=== PATIENT | male | born 1935 | race Caucasian/White ===

== ENCOUNTER 2017-01-06 10:51 | Inpatient (IN) | payer MEDICARE, MEDICAID ==
[~2017-01-06] VITALS: Ht 165.1 cm; Wt 57.3 kg
[~2017-01-06 10:51] MED LIST: /ADVA50050; /ADVA50050 IN; /ATOR40TA; /ESOM40CA OR; /TIOT18INH; /WARF25TA OR; ACIPHEX; ASPI325T28 PO; ATOR40TA75 PO; BABY81CH; CALCIUM CITRATE PO; COLA100C2 OR; DIOV160T5; DIOV160T5 OR; ECOT325T5; FISH1000 OR; FISHCAP; FLAG500T OR; FURO20TA2 PO; ISMO20TA; ISOS20TA PO; KLOR10TA; LASI20TA; LASI20TA OR; LASI40TA; LEVA500T; LOPR100T; LOVAZA; MULT1TAB8 PO; NIAC500T; PAXI20TA29 PO; SENN8.6T7 PO; THERGRAN; VALS1TAB47 PO; VERA120C3; VERA240C PO; VERAPAMIL PO; VITAMIN D PO; ZETI10TA; ZETI10TA30 PO; [UNRECOGNIZED DRUG - OTHER] PO
[2017-01-06] MEDS ORDERED: ASPI1TAB PO (11:01)
[2017-01-06] MEDS ORDERED: ELIQ5TAB PO (11:01)
[2017-01-06] MEDS ORDERED: DIGO0.12 PO (11:01)
[2017-01-06] MEDS ORDERED: NS 1,000 ML IV SCH (12:18)
[2017-01-06] MEDS ORDERED: ACETAMINOPHEN TAB 650MG DOSE (2X325MG) PO ONE (12:30)
[2017-01-06 12:57] LABS: BASO % 0.1 % (0.0-1.0); EOS % 0.2 % (0.0-3.0); LARGE UNSTAINED CELL # 0.2 K/mm3 (0.0-0.4); LARGE UNSTAINED CELL % 1.1 % (0.0-4.0); LYMPH # 1.2 K/mm3 (1.5-4.5); LYMPH % 5.7 % (24.0-44.0); MEAN CORPUSCULAR HEMOGLOBIN 31.7 pg (27.0-33.0); MEAN CORPUSCULAR HGB CONC 34.6 g/dl (32.0-36.5); MEAN CORPUSCULAR VOLUME 91.6 fl (80.0-96.0); MONO # 0.9 K/mm3 (0.0-0.8); MONO % 4.3 % (0.0-5.0); NEUTROPHILS # 19.1 K/mm3 (1.8-7.7); NEUTROPHILS % 88.6 % (36.0-66.0); PLATELET COUNT, AUTOMATED 147 k/mm3 (150-450); RED CELL DISTRIBUTION WIDTH 13.1 % (11.5-14.5); WHITE BLOOD COUNT 21.5 K/mm3 (4.0-10.0)
[2017-01-06 13:27] LABS: ALBUMIN 3.3 GM/DL (3.2-5.2); ALBUMIN/GLOBULIN RATIO 1.1 (1.00-1.93); BILIRUBIN,DIRECT 0.5 MG/DL (0.0-0.2); BILIRUBIN,TOTAL 2.2 MG/DL (0.2-1.0); CALCIUM LEVEL 8.2 MG/DL (8.8-10.2); CREATININE FOR GFR 1.74 MG/DL (0.70-1.30); GLOMERULAR FILTRATION RATE 40.1 (>35); POTASSIUM SERUM 4.2 MEQ/L (3.5-5.1); TOTAL PROTEIN 6.3 GM/DL (6.4-8.2)
[2017-01-06 13:37] LABS: DIGOXIN LEVEL 1.3 NG/ML (0.5-2.0)
[2017-01-06] MEDS ORDERED: LIPI20TA PO (14:27)
--- NOTE | 2017-01-06 14:31 | REP ---
PELVIS: Single AP view. HISTORY: Back pain after a fall. FINDINGS: AP view of the pelvis demonstrates a left hip prosthesis with some heterotopic bone formation superior and lateral. Bony pelvic ring is intact. Sacrum is intact. 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 No fracture is seen. IMPRESSION: No fracture visible. Signed by Lenard Saavedra MD 01/06/2017 02:49 P
--- NOTE | 2017-01-06 14:42 | REP ---
Lumbar spine series: Five views. History: Low back pain. Injury in a fall. Findings: Five views of the lumbar spine show mild levoconvex curve. There is advanced degenerative disc disease at each lumbar level. This is least pronounced at L4-5. Pedicles and posterior elements are intact. No evidence of spondylolysis or spondylolisthesis is seen. There is osteoarthritic facet sclerosis and narrowing bilaterally at L5-S1 and to some degree at L4-5. Sacrum and SI joints are unremarkable. No acute bony abnormality is seen. Impression: Degenerative spondylosis changes. No acute bony abnormality. No fracture or collapse seen. Signed by Lenard Saavedra MD 01/06/2017 02:50 P
--- NOTE | 2017-01-06 14:43 | REP ---
Thoracic spine series: Three views. History: Back pain after a fall. Findings: Thoracic vertebral body heights are preserved. No fracture or collapse is seen. Discogenic spurring is seen throughout the thoracic spine. No paravertebral soft-tissue mass is seen. Median sternotomy wires are noted. Pedicles and posterior elements are intact. Impression: Degenerative disc changes. No fracture seen. Prior sternotomy. Signed by Lenard Saavedra MD 01/06/2017 02:49 P
--- NOTE | 2017-01-06 14:44 | REP ---
CHEST X-RAY, two views: History: Fever. Findings: Patient is status post prior sternotomy. The lungs are symmetrically aerated and clear. EKG electrodes are seen. Pleural angles are sharp. Heart is not enlarged. No significant change from comparison study December 18, 2014. Impression: No active disease. Signed by Lenard Saavedra MD 01/06/2017 02:50 P
[2017-01-06] MEDS ORDERED: CIPROFLOXACIN 400 MG in APPROPRIATE DILUENT 1 EA IV ONE (15:00)
[2017-01-06] MEDS ORDERED: NORCO, ANEXSIA 5/325MG TABLET (HYDROcodone/ACETAMINOPHEN) PO PRN ×2 (15:45)
[2017-01-06] MEDS: NS 1,000 ML IV SCH ×2 (15:45→21:57)
[2017-01-06] MEDS ORDERED: ONDANSETRON 4MG/2ML VIAL (J2405) IV PRN (15:45)
--- NOTE | 2017-01-06 16:39 | HPE ---
DATE OF ADMISSION: 01/06/2017 This is a patient of Dr. Capo Willard. SCHOOL PHOTOGRAPHER: Dr. Lopez. CHIEF COMPLAINT: Fell down. SUMMARY OF HISTORY OF PRESENT ILLNESS: This is an 81-year-old with baseline memory impairment who last night got out of bed, fell. He is unsure why he fell. His heard him, came in. He was awake. There was no obvious loss of consciousness. She could not get him back in bed. Called their son, who helped father into bed. He had an uneventful evening. He had no complaints of new or unusual pain. This morning he seems fine. His has been concerned, though, as he has been suffering from falls. He has been falling around twice a week, and this week he fell three to four times. He has not been totally well for about a year. He was brought to the emergency department today. He was found to be febrile and had abnormal urinalysis (UA). I was called for admission. PAST MEDICAL HISTORY: Notable for: 1. Coronary artery disease, status post coronary artery bypass graft (CABG). 2. Hypertension. 3. Chronic obstructive pulmonary disease (COPD). 4. Hyperlipidemia. 5. Depression. 6. Carotid artery disease. PAST SURGICAL HISTORY: Notable for: 1. CABG. 2. Cataract extraction. 3. Cholecystectomy 4. Left hip surgery. ALLERGIES: Listed as MORPHINE, OXYCODONE, PENICILLIN. 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 Quit smoking over 30 years ago. Does not use any alcohol. He does not have any advance directives. FAMILY HISTORY: Unremarkable due to advanced age. REVIEW OF SYSTEMS: Is not meaningfully obtainable from the patient, but the patient's says that he has been eating and drinking normally. She has not noticed that he has had any weight gain or weight loss. He has never complained of chest pain, shortness of breath. He has had no nausea, vomiting, or diarrhea. He has never had any seizures. Otherwise unremarkable. PHYSICAL EXAMINATION: Temperature 100.8, pulse 60, respiratory rate 20, blood pressure 163/67, 97% on room air. Body mass index is 23.3. He is awake and following commands but not a useful historian. He is somewhat argumentative with me and his . His assures me this is totally normal. Head is normocephalic. Sinuses nontender. Pupils equal, round, reactive, anicteric. Not injected. Nasal septum is midline. Mucous membranes are tacky. Neck is supple. No cervical or supraclavicular adenopathy. Breathing is symmetrical and easy, although he does feel warm on exam. Inspiratory to expiratory (I-to-E) ratio is 1:3. There is no costovertebral angle (CVA) tenderness. There is bilateral sacroiliac (SI) joint tenderness. Abdomen is soft, dough, with mild suprapubic tenderness without rebound or guarding. There is no significant lower extremity edema. He is moving all four extremities. Strength is 4+. White cell count 21.5, hemoglobin 13.1, and platelets of 147. Sodium is 143, potassium 4.2, chloride 107, carbon dioxide 24, BUN 30, creatinine 1.74. Baseline creatinine would appear to be probably around 1.2. Calcium 8.2. Total bilirubin 2.2, direct bilirubin 0.5 AST 28, ALT 17, alkaline phosphatase 69. CK 238, troponin I 0.12. TSH 1.25. UA is notable for 3+ leukocyte esterase, too numerous to count whites, 36 reds, 2+ bacteria. Digoxin level 1.3. Urine and blood culture are pending. Chest x-ray shows no acute disease. Lumbar spine x-ray shows degenerative changes without acute disease. Pelvic x-ray shows no visible fracture. Thoracic spine x-ray shows degenerative changes. No fracture. Previous sternotomy. EKG shows evidence of left ventricular hypertrophy (LVH) with ST-T-wave changes, ventricular ectopy. ASSESSMENT: This is an 81-year-old with falls and likely urinary tract infection, noted to have minimally elevated troponin. PLAN: 1. Patient has acute renal failure and likely urinary tract infection. The possibility of obstruction should be considered. CT scan of the abdomen and pelvis is ordered without contrast, also looking for evidence of pyelonephritis to further assess the possibility for that as well, which would change the length of treatment. Cultures are pending. Ciprofloxacin started, which is reasonable given his history of PENICILLIN allergy. 2. The patient has history of coronary artery disease, status post CABG. He does have elevated troponin minimally in the setting of acute renal failure without any symptoms associated with cardiac dysfunction. Will repeat the troponins. I do not believe there is a cause for telemetry at this point. 3. Patient has history of hypertension. Withhold nephrotoxic drugs and monitor his blood pressure. 4. Patient has hyperlipidemia. 5. Patient has been suffering from falls chronically and appears to have memory impairment. Possibility of dementia occurs to me. We will have physical therapy see him. I believe correcting his acute illness will improve his physical functionality. 6. Patient does have history of carotid stenosis. Will re-image his carotids. 7. Deep vein thrombosis (DVT) prophylaxis is ordered.
[2017-01-06 17:50] VITALS: BP 162/70
[2017-01-06] MEDS ORDERED: HEPARIN SOD (PORCINE) 5000 UNITS/ML VIAL SC SCH (21:00)
[2017-01-06] MEDS: SENOKOT S TAB PO SCH (21:56)
[2017-01-06] MEDS: APIXABAN 5 MG TAB (ELIQUIS) PO SCH (21:56)
[2017-01-06 22:00] VITALS: BP 134/69
[2017-01-07 05:32] LABS: MEAN CORPUSCULAR HEMOGLOBIN 31.7 pg (27.0-33.0); MEAN CORPUSCULAR HGB CONC 34.6 g/dl (32.0-36.5); MEAN CORPUSCULAR VOLUME 91.8 fl (80.0-96.0); RED CELL DISTRIBUTION WIDTH 13.6 % (11.5-14.5); WHITE BLOOD COUNT 19.4 K/mm3 (4.0-10.0)
[2017-01-07 06:00] VITALS: BP 158/69
[2017-01-07 06:11] LABS: CALCIUM LEVEL 7.9 MG/DL (8.8-10.2); CREATININE FOR GFR 1.57 MG/DL (0.70-1.30); GLOMERULAR FILTRATION RATE 45.1 (>35); MAGNESIUM LEVEL 2.1 MG/DL (1.8-2.4); POTASSIUM SERUM 4.3 MEQ/L (3.5-5.1)
--- NOTE | 2017-01-07 07:09 | REP ---
CT study abdomen and pelvis without IV or oral contrast: Renal stone protocol. History: Mid back pain. Acute renal failure. Pyelonephritis. Comparison CT study August 15, 2011. CT findings: Digital preliminary corn chip maker radiograph demonstrates an unremarkable bowel gas pattern. There are median sternotomy wires and a prosthetic left hip is seen. The lung bases are essentially clear. The liver and spleen contain scattered granulomatous calcifications but are otherwise unremarkable. There is some pneumobilia post cholecystectomy. No pancreatic abnormality is observed. Vascular calcification is seen fairly extensively. Small and large bowel loops are normal in the upper abdomen. The kidneys appear morphologically intact. No hydronephrosis is seen. There is a cyst at the lower pole of the left kidney measuring 1.8 cm, which is slightly larger, but not new when compared to the 2012 prior study. No hydronephrosis or renal calculus is seen. No ureteral calculus is observed. There is left colonic diverticulosis without CT evidence of diverticulitis. Urinary bladder and prostate are unremarkable. Prostate is enlarged. A normal appendix is seen posterior to the cecum. No abdominal wall defect is seen. No bony destructive lesion is seen. Impression: Status post cholecystectomy with mild pneumobilia. Extensive vascular calcification. Left colonic diverticulosis. Moderate stool in the rectum and rectosigmoid. No acute abnormality. 1.8 cm cyst left kidney. Signed by Lenard Saavedra MD 01/07/2017 08:46 A
[2017-01-07] MEDS: ATORVASTATIN 20 MG TAB PO SCH (08:24)
[2017-01-07] MEDS: APIXABAN 5 MG TAB (ELIQUIS) PO SCH ×2 (08:24→20:25)
[2017-01-07] MEDS: SENOKOT S TAB PO SCH ×2 (08:24→20:25)
[2017-01-07] MEDS: ASPIRIN 81 MG ENTERIC TAB PO SCH (08:24)
[2017-01-07 14:00] VITALS: BP 136/63
[2017-01-07] MEDS: CIPROFLOXACIN 400 MG in APPROPRIATE DILUENT 1 EA IV SCH (14:18)
[2017-01-07 16:00] VITALS: BP 172/68
[2017-01-07] MEDS: NS 1,000 ML IV SCH (17:23)
[2017-01-07] MEDS: ACETAMINOPHEN TAB 650MG DOSE (2X325MG) PO PRN (17:24)
--- NOTE | 2017-01-07 21:26 | ECGEPIP ---
Stationary ECG Study [facility] - ED Test Date: 2017-01-06 Pat Name: MIMI DEMPSEY Department: Room: - Gender: M Grant Administrator: sb : [id number] Requested By: DASH Wang Order Number: [id number] Reading MD: Jeanna Morrissey Measurements Intervals [place] Rate: 67 P: 206 IN: 298 QRS: -32 QRSD: 118 T: 151 QT: 390 QTc: 413 Interpretive Statements SINUS RHYTHM WITH FIRST DEGREE AV BLOCK WITH OCCASIONAL VENTRICULAR PREMATURE COMPLEXES WITH OCCASIONAL SUPRAVENTRICULAR PREMAT MARKED LEFT AXIS DEVIATION LEFT VENTRICULAR HYPERTROPHY AND ST-T CHANGE VS ISCHEMIA ANTEROSEPTAL ST CHANGES REQUIRE CLINICAL CORRELATION Electronically Signed On 01-07-2017 21:26:50 EDT by Jeanna Morrissey
[2017-01-07 22:00] VITALS: BP 148/67
[2017-01-08] VITALS (8 sets, daily range): BP systolic 144–204; BP diastolic 64–120
[2017-01-08] MEDS: CIPROFLOXACIN 400 MG in APPROPRIATE DILUENT 1 EA IV SCH ×2 (01:23→15:25)
[2017-01-08] MEDS ORDERED: FUROSEMIDE 40 MG/4 ML VIAL (J1940) IV ONE ×2 (03:15→15:45)
[2017-01-08] MEDS: ACETAMINOPHEN TAB 650MG DOSE (2X325MG) PO PRN ×2 (04:38→16:37)
[2017-01-08] MEDS ORDERED: LORazepam 2 MG/ML VIAL (J2060) IV STA (04:45)
[2017-01-08 05:40] LABS: MEAN CORPUSCULAR HEMOGLOBIN 31.8 pg (27.0-33.0); MEAN CORPUSCULAR HGB CONC 34.7 g/dl (32.0-36.5); MEAN CORPUSCULAR VOLUME 91.6 fl (80.0-96.0); RED CELL DISTRIBUTION WIDTH 13.5 % (11.5-14.5); WHITE BLOOD COUNT 13.1 K/mm3 (4.0-10.0)
[2017-01-08 06:17] LABS: CALCIUM LEVEL 7.8 MG/DL (8.8-10.2); CREATININE FOR GFR 1.39 MG/DL (0.70-1.30); MAGNESIUM LEVEL 1.7 MG/DL (1.8-2.4); POTASSIUM SERUM 3.8 MEQ/L (3.5-5.1)
--- NOTE | 2017-01-08 07:37 | REP ---
Duplex carotid sonography: History: Falls. Comparison carotid sonography December 19, 2014. Findings: Antegrade flow is observed in both vertebral arteries. Right carotid: The right common carotid artery is unremarkable. There is mixed plaquing in the bulb and proximal ICA on the right side. Elevated systolic velocities are seen in the ICA on Doppler interrogation. Velocity chart right carotid: CCA PSV 131 cm/s ICA PSV 201 cm/s ICA EDV 27 cm/s ECA PSV 152 cm s Right ICA/CCA ratio 1.5. Impression: 50-79% category narrowing in the right ICA by Doppler velocity criteria. Elevated right ICA Doppler velocity is slightly higher than on the 2014 study. Left carotid: Left common carotid artery is unremarkable. Mild mixed plaquing is seen in the bulb and proximal ICA on the left side. Color flow and spectral Doppler interrogation are unremarkable on the left. Velocity chart left carotid: CCA PSV 139 cm/s ICA PSV 15 cm/s ICA EDV 15 cm/s ECA PSV 155 Left ICA/CCA ratio normal 0.8. Impression: 16-49% category narrowing in the left ICA. Doppler velocities on the left have not changed significantly. Signed by Lenard Saavedra MD 01/08/2017 08:38 A
--- NOTE | 2017-01-08 08:23 | REP ---
Sitting AP portable chest x-ray: Single view. History: Shortness of breath. Comparison chest x-ray January 06, 2017. Findings: Prior sternotomy wires are seen. Heart is at the upper range of normal in size. Pulmonary vascular markings are somewhat increased in the perihilar region. No pleural effusion or focal infiltrate is seen. Impression: Somewhat prominent central pulmonary vessels and interstitial markings. Borderline heart size. Prior sternotomy. Signed by Lenard Saavedra MD 01/08/2017 08:38 A
[2017-01-08] MEDS ORDERED: DIGOXIN 0.125 MG TAB PO SCH (09:00)
[2017-01-08] MEDS: ASPIRIN 81 MG ENTERIC TAB PO SCH (11:31)
[2017-01-08] MEDS: SENOKOT S TAB PO SCH ×2 (11:31→21:11)
[2017-01-08] MEDS: ATORVASTATIN 20 MG TAB PO SCH (11:31)
[2017-01-08] MEDS: APIXABAN 5 MG TAB (ELIQUIS) PO SCH ×2 (11:32→21:11)
[2017-01-08] MEDS: DIGOXIN 0.125 MG TAB PO SCH (11:32)
[2017-01-08] MEDS ORDERED: MAG SULF 1GM/100ML (MAG RUN) 1 GM in APPROPRIATE DILUENT 1 EA IV ONE (16:30)
--- NOTE | 2017-01-08 17:34 | IPN ---
DATE: 01/08/2017 SUBJECTIVE: The patient seen and examined in the room today. After midnight, the patient started having acute respiratory issues. The patient was transferred from medical/surgical to the progressive care unit (PCU). Imaging studies were performed and showed the patient was starting to have signs of fluid overload and one dose of diuretic was given. During the encounter, the patient stated that his breathing is stable. The patient is very sleepy. Still requires increased oxygen support. OBJECTIVE: VITAL SIGNS: Temperature is 98.8, pulse 82, respirations 23, blood pressure 157/67, pulse oximetry is 94% with 2 liters nasal cannula. GENERAL: Fatigued. No sign of acute distress. Alert and oriented times three. HEENT: Normocephalic, atraumatic. Extraocular movements grossly intact. Positive for jugular venous distention (JVD). CARDIOVASCULAR: Positive S1, S2, regular rate. On cardiac telemetry, the patient has frequent PVCs. LUNGS: Positive crackles bilaterally. EXTREMITIES: Very trace edema. No sign of cyanosis. LABORATORY DATA: WBC is 13.1, hemoglobin 11.7, hematocrit 33.7, platelet count is 149, ESR is 64. Sodium is 139, potassium 3.8, chloride is 109, carbon dioxide 21, BUN 26, creatinine is 1.39, GFR is 52, fasting glucose is 137, calcium is 7.8, magnesium 1.7. C-reactive protein is 17.4. BNP is 917. ASSESSMENT AND PLAN: 1. Acute respiratory distress secondary to fluid overload. On admission, the patient is clinically dry and the patient has acute kidney injury. The patient was started on IV fluid and the patient's renal function continues to improve. On admission, the patient had a creatinine of 1.74 and today the patient's creatinine improved to 1.39; however, due to fluid resuscitation, the patient became significantly short of breath and required progressive care unit (PCU) monitoring. I have been checking the input and output. The patient received one dose of IV Lasix in the morning. However, there is still no significant output compared to input. I will order another dose of Lasix in the afternoon. We will continue to monitor the fluid balance. 2. Urinary tract infection. Results show Escherichia (E) coli. The patient has a PENICILLIN allergy. Continue on ciprofloxacin. 3. Acute kidney injury. Initially it was due to prerenal azotemia from dehydration. The patient has been receiving IV fluid and renal function shows continuous improvement. However, due to the fluid overload, IV fluid had to be stopped at this moment. 4. Diastolic congestive heart failure exacerbation. Cardiac echocardiogram was done in November 2014. The patient had a normal ejection fraction and the patient had grade 1 left ventricular diastolic dysfunction. Currently, the patient is being treated for diastolic congestive heart failure exacerbation. 5. Dyslipidemia. 6. Depression. 7. Coronary artery disease. Status post coronary artery bypass graft (CABG). 8. Chronic obstructive pulmonary disease (COPD). 9. Hypertension. 10. Deep vein thrombosis (DVT) prophylaxis. On thromboembolic compression stockings (TEDS), sequential compression device (SCD).
--- NOTE | 2017-01-08 23:35 | IPN ---
DATE: 01/07/2017 SUBJECTIVE: The patient seen and examined in the room today. During the encounter, the patient shows some fatigue but she is able to answer questions appropriately. Alert and oriented times three. Denies any chest pain or palpitations. Denies any difficulty breathing. OBJECTIVE: VITAL SIGNS: Temperature is 99.5, pulse 87, respirations 18, blood pressure 158/69. Pulse oximetry 98% on room air. GENERAL: No sign of acute distress. Fatigue. Alert and oriented times three. HEENT: Normocephalic, atraumatic. Extraocular movements grossly intact. CARDIOVASCULAR: Positive S1, S2, regular rate. LUNGS: Clear to auscultation bilaterally. ABDOMEN: Soft, nontender, nondistended. Bowel sounds present. EXTREMITIES: No significant edema. No cyanosis. LABORATORY DATA: WBC 19.4, hemoglobin 12, hematocrit 34.8, platelet count is 130. Sodium is 143, potassium 4.3, chloride is 111, carbon dioxide 24, BUN 32, creatinine 1.57. GFR is 45.1. Fasting glucose is 116. Calcium is 7.9, magnesium 2.1. Total troponin I is 0.19. Blood cultures pending. Urine cultures pending. ASSESSMENT AND PLAN: 1. Urinary tract infection. UA shows positive nitrate. Too many to count WBC and positive bacteria. Urine culture is still pending. The patient will be on ciprofloxacin. The patient has allergy to PENICILLIN CLASS. 2. Acute kidney injury. The patient had intermittent fluid resuscitation. Renal function is improving. The patient will be oral intake. Encouraged fluid intake. 3. Hypertension. The patient is currently not on any blood pressure medication. Continue to monitor. 4. Coronary artery disease, status post CABG. Currently the patient has trending of troponin. The highest 0.19 this morning. Later around 1:00 pm the repeated troponin shows decreased troponin level. This mild elevation of troponin may be due to current acute illnesses causing demand ischemia. 5. History of chronic obstructive pulmonary disease (COPD). No exacerbation at this moment. 6. History of carotid disease. 7. Depression. 8. Congestive heart failure. No sign of overload at this moment. 9. Deep venous thrombosis (DVT) prophylaxis. The patient is high for risk. The patient will be on thromboembolism deterrents (TEDs), sequential compression devices.
[2017-01-09] VITALS (21 sets, daily range): BP systolic 99–163; BP diastolic 49–73
[2017-01-09] MEDS: CIPROFLOXACIN 400 MG in APPROPRIATE DILUENT 1 EA IV SCH (01:48)
[2017-01-09] MEDS: ACETAMINOPHEN TAB 650MG DOSE (2X325MG) PO PRN ×2 (03:39→21:12)
[2017-01-09] MEDS ORDERED: LORazepam 2 MG/ML VIAL (J2060) IV STA ×2 (04:12→22:05)
[2017-01-09] MEDS ORDERED: LORazepam 2 MG/ML VIAL (J2060) As Ordered ONE (04:14)
[2017-01-09] MEDS ORDERED: ASPIRIN 325 MG TAB PO ONE (04:30)
[2017-01-09 04:37] LABS: ABG BASE EXCESS -8.1 (-2.0-2.0); ABG HCO3 14.1 MEQ/L (22.0-26.0); ABG PARTIAL PRESSURE CO2 21.7 mmHg (35.0-45.0); ABG PARTIAL PRESSURE O2 93.3 mmHg (75.0-100.0); ABG TOTAL CO2 14.8 MEQ/L (23.0-31.0); ABG pH (ARTERIAL) 7.432 UNITS (7.350-7.450)
[2017-01-09] MEDS ORDERED: SODIUM CHLORIDE 0.9% 1000 ML IV ONE ×2 (04:45→05:45)
[2017-01-09] MEDS: MEROPENEM INJ 500 MG in D5W MINI-BAG PLUS 100 ML IV SCH ×3 (05:01→21:13)
[2017-01-09 05:06] LABS: BASO % 0.2 % (0.0-1.0); EOS # 0.1 K/mm3 (0.0-0.50); EOS % 0.8 % (0.0-3.0); LARGE UNSTAINED CELL # 0.2 K/mm3 (0.0-0.4); LARGE UNSTAINED CELL % 1.5 % (0.0-4.0); LYMPH # 1.1 K/mm3 (1.5-4.5); LYMPH % 8.3 % (24.0-44.0); MEAN CORPUSCULAR HEMOGLOBIN 31.9 pg (27.0-33.0); MEAN CORPUSCULAR HGB CONC 34.4 g/dl (32.0-36.5); MEAN CORPUSCULAR VOLUME 92.7 fl (80.0-96.0); MONO # 0.6 K/mm3 (0.0-0.8); MONO % 5.5 % (0.0-5.0); NEUTROPHILS # 9.2 K/mm3 (1.8-7.7); NEUTROPHILS % 83.7 % (36.0-66.0); PLATELET COUNT, AUTOMATED 164 k/mm3 (150-450); RED CELL DISTRIBUTION WIDTH 13.5 % (11.5-14.5)
[2017-01-09 05:10] LABS: CALCIUM LEVEL 7.8 MG/DL (8.8-10.2); CREATININE FOR GFR 1.7 MG/DL (0.70-1.30); GLOMERULAR FILTRATION RATE 41.2 (>35); POTASSIUM SERUM 3.8 MEQ/L (3.5-5.1)
--- NOTE | 2017-01-09 05:10 | PHACANCOPD ---
PHARMACY VANCOMYCIN DOSING Pt Demographics Demographics Patient Age:81 , Weight:63.400 , Gender: male Adjusted Body Weight Date: 01/09/17, Adjusted Body Weight: [63.4] Kg ACTUAL WT Vancomycin Vancomycin indication: SEPSIS Vancomycin Target Ranges: 10-20 mcg/ml Vancomycin Load Y/N: No Load Dose Date Time Vancomycin Load Dose: Date: Time: Vancomycin Dose Date: 01/09/17. Current Vancomycin Dose: [1 GM IV Q24H@06] Intermittent Dosing?: No Labs Labs Laboratory Tests 01/08/17 05:27 Red Blood Count 3.68 L, Mean Corpuscular Volume 91.6, Mean Corpuscular Hemoglobin 31.8, Mean Corpuscular Hemoglobin Concent 34.7, Red Cell Distribution Width 13.5, Calcium Level 7.8 L Micro Microbiology 01/09/17 Blood Culture, Received Pending 01/08/17 Blood Culture, Received Pending 01/06/17 Blood Culture - Preliminary, Resulted No Growth after 48 hours. All Specime... 01/06/17 Blood Culture - Preliminary, Resulted No Growth after 48 hours. All Specime... 01/06/17 Urine Culture - Final, Complete Escherichia Coli Creatinine Clearance Date:01/09/17. Creatinine Clearance: [36.1].CALCULATED Pending Labs VANCO TROUGH DUE 01/11@0500 Assessment and Plan Maintaining Current Dose?: Yes Reason for dose change: No Dose Change Pharmacist Note Pharmacist Note Date: 01/09/17. Pharmacist note:SEPSIS SUSPECTED ;CIPRO DISCONTINUED.TO BEGIN MEROPENEM 500MG IV Q8H AND VANCOMYCIN PER PHARMACY CONSULT.WILL DOSE VANCOMYCIN 1 GM IV Q24H@06,WITH FIRST TROUGH FOR 01/11@0500 PAULA VARELA PHARMACY Jan 09, 2017 05:10
[2017-01-09 05:32] LABS: ERYTHROCYTE SEDIMENTATION RATE 68 mm/hr (0-20)
[2017-01-09 05:38] LABS: YEAST LIKE CELL URINE AUTO SMALL
[2017-01-09] MEDS: VANCOMYCIN HCL 1,000 MG, VIAL MATE ADAPTER 1 EACH in D5W 250 ML IV SCH (05:51)
[2017-01-09] MEDS: APIXABAN 5 MG TAB (ELIQUIS) PO SCH ×2 (08:01→21:13)
[2017-01-09] MEDS: ASPIRIN 81 MG ENTERIC TAB PO SCH (08:01)
[2017-01-09] MEDS: DIGOXIN 0.125 MG TAB PO SCH (08:01)
[2017-01-09] MEDS: SENOKOT S TAB PO SCH ×2 (08:02→21:12)
[2017-01-09] MEDS: ATORVASTATIN 20 MG TAB PO SCH (08:02)
--- NOTE | 2017-01-09 08:04 | REP ---
Portable chest x-ray: Single view. History: Tachypnea. Comparison study: 08 January 2017. Findings: Oxygen delivery tubing and EKG monitoring electrodes are seen. The lungs are well inflated and free of infiltrate. Cardiomegaly is observed in this patient status post prior sternotomy. Pulmonary vasculature is cephalized and somewhat congested. Impression: Cephalization and pulmonary vascular congestion. Cardiomegaly. No pleural effusion or pulmonary edema seen. Mild CHF pattern. Signed by Lenard Saavedra MD 01/09/2017 09:54 A
--- NOTE | 2017-01-09 12:48 | IPNPDOC ---
Subjective Date Seen The patient was seen on 01/09/17. Subjective Chief Complaint/HPI Patient seen and examined at bedside this morning. States that he is feeling better this morning. Denies any acute complaints from overnight. However, according to staff the patient was notably tachycardic, tachypnea, and short of breath requiring a nonrebreather mask overnight. At this time, the patient states he is resting comfortably and he is without any acute complaints. He denies any memory of any of the aforementioned overnight occurrences. Objective Physical Examination General Exam: Positive: Alert, Cooperative, No Acute Distress ENT Exam: Positive: Atraumatic, Mucous membr. moist/pink Neck Exam: Negative: JVD Chest Exam: Positive: Diminished, Negative: Rhonchi, Wheezing Heart Exam: Positive: Rate Normal, Normal S1, Normal S2 Telemetry: Positive: Sinus Abdomen Exam: Positive: Soft, Negative: Tenderness Extremity Exam: Negative: Tenderness, Swelling Assessment /Plan Plan/VTE VTE Prophylaxis Ordered?: Yes Plan Sepsis 2/2 Urinary Tract Infection UA noted from admission Urine Culture notable for E. Coli--susceptibilites noted Blood cultures unrevealing thus far Patient did spike persistent fevers last night (T. Max 103.8) and he was tachycardic as well Abx coverage broadened with Vanco/Meropenem Patient afebrile this morning, and HR back to within normal range Lactic acidosis also noted overnight (4.4)--however has now normalized following IVF hydration WBC downward trending We will cont to monitor the patient's progress Lactic Acidosis 2/2 above, resolved s/p IVF Hydration Acute Kidney Injury superimposed on CKD Stage III Serum Cr 1.70 this AM (Baseline 1.2-1.5) S/P IVF Hydration CT Abd/Pel with no acute findings Hold Nephrotoxins We will cont to monitor serum BMP Hx of [place] in 1999, CAD s/p CABG in 2000, Carotid Artery Disease, ?Atrial Fibrillation EKG with no acute ST Changes Patient did have mild elevation troponins (Peak 0.19)--this is likely 2/2 underlying Sepsis 2D ECHO from 2014 notable for Stage 1 DD--we will repeat an ECHO here to assess for acute changes Cont ASA, Statin Not on BB as his HR seems to run borderline low at baseline Eliquis dose renally adjusted to 2.5mg BID Patient denies any c/o chest pain at this time Stage 1 DD CHF Patient did receive IVF hydration for ARSLAN, and did have some decompensation of Diastolic CHF He was given lasix IV x 2 doses yesterday Appears more volume compensated today, as he is saturating 93% on Room Air 2D ECHO from 2014 as noted above, repeat ECHO ordered Dyslipidemia Cont Statin DVT Prophylaxis Already on AC Prognosis: Guarded Dispo-We will continue to monitor the patient's progress with the aforementioned medical management. PT on board for functional optimization. VS, I&O, 24H, Fishbone Vital Signs/I&O Vital Signs Date Time Temp Pulse Resp B/P (MAP) Pulse Ox O2 Delivery O2 Flow Rate FiO2 01/09/17 12:00 Room Air 01/09/17 11:00 97.4 56 109/49 (69) 93 01/09/17 08:00 4.0 01/09/17 04:30 35 I&O- Last 24 Hours up to 6 AM 01/09/17 06:00 Intake Total 2270 ml Output Total 2190 ml Balance 80 ml Laboratory Data 24H LABS Laboratory Tests 2 01/09/17 04:30: Blood Gas Bicarbonate Standard 18.0L, Arterial Blood pH 7.432, Arterial Blood Partial Pressure CO2 21.7L, Arterial Blood Partial Pressure O2 93.3, Arterial Blood Total CO2 14.8L, Arterial Blood HCO3 14.1L, Arterial Blood Base Excess - 8.1L, Arterial Blood Oxygen Saturation 97.2 01/09/17 04:39: White Blood Count 11.0H, Red Blood Count 3.82L, Hemoglobin 12.2L, Hematocrit 35.4L, Mean Corpuscular Volume 92.7, Mean Corpuscular Hemoglobin 31.9, Mean Corpuscular Hemoglobin Concent 34.4, Red Cell Distribution Width 13.5, Platelet Count 164, Neutrophils (%) (Auto) 83.7H, Lymphocytes (%) (Auto) 8.3L, Monocytes (%) (Auto) 5.5H, Eosinophils (%) (Auto) 0.8, Basophils (%) (Auto) 0.2, Neutrophils # (Auto) 9.2H, Lymphocytes # (Auto) 1.1L, Monocytes # (Auto) 0.6, Eosinophils # (Auto) 0.1, Basophils # (Auto) 0.0, Large Unclassified Cells % 1.5 , Large Unclassified Cells # 0.2, Erythrocyte Sedimentation Rate 68H, Anion Gap 14, Glomerular Filtration Rate 41.2, Lactic Acid Level 4.4*H, Blood Urea Nitrogen 30H, Creatinine 1.70H, Sodium Level 139, Potassium Level 3.8, Chloride Level 106, Carbon Dioxide Level 19L, Calcium Level 7.8L, Magnesium Level 2.0, C- Reactive Protein, Quantitative 17.60H 01/09/17 05:17: Urine Appearance CLOUDYH, Urine Color REDH, Urine pH 5.0, Urine Specific [place] 1.019, Urine Protein 2+H, Urine Glucose (UA) NEGATIVE, Urine Ketones NEGATIVE, Urine Urobilinogen 0.2, Urine Bilirubin NEGATIVE, Urine Leukocyte Esterase 1+H, Urine Blood 3+H, Urine Nitrite NEGATIVE, Urine WBC (Auto) 87H, Urine RBC (Auto) TNTCH, Urine Hyaline Casts (Auto) 14, Urine Bacteria (Auto) 1+H , Urine Squamous Epithelial Cells 2, Urine Mucus (Auto) SMALL, Urine Yeast-Like Cells (Auto) SMALLH, Urine Sperm (Auto) 01/09/17 09:20: Lactic Acid Followup at 4 Hours 1.5 CBC/BMP Laboratory Tests 01/09/17 04:39 Red Blood Count 3.82 L, Mean Corpuscular Volume 92.7, Mean Corpuscular Hemoglobin 31.9, Mean Corpuscular Hemoglobin Concent 34.4, Red Cell Distribution Width 13.5, Neutrophils (%) (Auto) 83.7 H, Lymphocytes (%) (Auto) 8.3 L, Monocytes (%) (Auto) 5.5 H, Eosinophils (%) (Auto) 0.8, Basophils (%) ( Auto) 0.2, Neutrophils # (Auto) 9.2 H, Lymphocytes # (Auto) 1.1 L, Monocytes # ( Auto) 0.6, Eosinophils # (Auto) 0.1, Basophils # (Auto) 0.0, Calcium Level 7.8 L Microbiology Microbiology 01/09/17 Blood Culture, Received Pending 01/09/17 Blood Culture, Received Pending 01/08/17 Blood Culture - Preliminary, Resulted No growth after 24 hours . All specim... 01/06/17 Blood Culture - Preliminary, Resulted No Growth after 48 hours. All Specime... 01/06/17 Blood Culture - Preliminary, Resulted No Growth after 48 hours. All Specime... 01/09/17 Urine Culture, Received Pending 01/06/17 Urine Culture - Final, Complete Escherichia Coli AXEL GLEZ MD Jan 09, 2017 12:48
[2017-01-09] MEDS ORDERED: QUEtiapine FUMARATE 25 MG TAB PO ONE (21:00)
[2017-01-10] VITALS (18 sets, daily range): BP systolic 114–168; BP diastolic 56–82
[2017-01-10] MEDS: ACETAMINOPHEN TAB 650MG DOSE (2X325MG) PO PRN ×3 (01:15→18:44)
[2017-01-10] MEDS ORDERED: LORazepam 2 MG/ML VIAL (J2060) IV STA (02:00)
[2017-01-10] MEDS ORDERED: ASPIRIN 300 MG SUPP PR ONE (03:00)
[2017-01-10 05:14] LABS: BASO % 0.1 % (0.0-1.0); EOS % 0.4 % (0.0-3.0); LARGE UNSTAINED CELL # 0.2 K/mm3 (0.0-0.4); LARGE UNSTAINED CELL % 1.5 % (0.0-4.0); LYMPH # 0.5 K/mm3 (1.5-4.5); LYMPH % 3.6 % (24.0-44.0); MEAN CORPUSCULAR HEMOGLOBIN 31.6 pg (27.0-33.0); MEAN CORPUSCULAR HGB CONC 34.7 g/dl (32.0-36.5); MEAN CORPUSCULAR VOLUME 90.9 fl (80.0-96.0); MONO # 0.9 K/mm3 (0.0-0.8); MONO % 7.5 % (0.0-5.0); NEUTROPHILS # 10.9 K/mm3 (1.8-7.7); NEUTROPHILS % 86.9 % (36.0-66.0); PLATELET COUNT, AUTOMATED 165 k/mm3 (150-450); RED CELL DISTRIBUTION WIDTH 13.4 % (11.5-14.5); WHITE BLOOD COUNT 12.5 K/mm3 (4.0-10.0)
[2017-01-10] MEDS: MEROPENEM INJ 500 MG in D5W MINI-BAG PLUS 100 ML IV SCH ×3 (05:16→21:49)
[2017-01-10 05:23] LABS: CALCIUM LEVEL 7.4 MG/DL (8.8-10.2); CREATININE FOR GFR 1.3 MG/DL (0.70-1.30); GLOMERULAR FILTRATION RATE 56.1 (>35); POTASSIUM SERUM 4.1 MEQ/L (3.5-5.1)
[2017-01-10] MEDS: VANCOMYCIN HCL 1,000 MG, VIAL MATE ADAPTER 1 EACH in D5W 250 ML IV SCH (05:47)
[2017-01-10] MEDS ORDERED: CALCIUM GLUCONATE 1,000 MG in D5W MINI-BAG PLUS 100 ML IV ONE (07:30)
[2017-01-10] MEDS ORDERED: ASPIRIN 300 MG SUPP PR SCH (09:00)
[2017-01-10] MEDS: DIGOXIN 0.125 MG TAB PO SCH (09:36)
[2017-01-10] MEDS: ATORVASTATIN 20 MG TAB PO SCH (09:36)
[2017-01-10] MEDS: ASPIRIN 81 MG ENTERIC TAB PO SCH (09:36)
[2017-01-10] MEDS: APIXABAN 5 MG TAB (ELIQUIS) PO SCH ×2 (09:36→21:49)
[2017-01-10 10:45] LABS: CALCIUM LEVEL 7.8 MG/DL (8.8-10.2); CREATININE FOR GFR 1.45 MG/DL (0.70-1.30); GLOMERULAR FILTRATION RATE 49.5 (>35); MAGNESIUM LEVEL 2.2 MG/DL (1.8-2.4); POTASSIUM SERUM 4.1 MEQ/L (3.5-5.1)
[2017-01-10] MEDS: SENOKOT S TAB PO SCH ×2 (10:56→21:49)
[2017-01-10 11:22] LABS: ABG BASE EXCESS -6.8 (-2.0-2.0); ABG HCO3 15.9 MEQ/L (22.0-26.0); ABG PARTIAL PRESSURE CO2 24.7 mmHg (35.0-45.0); ABG PARTIAL PRESSURE O2 65.6 mmHg (75.0-100.0); ABG STANDARD HCO3 18.9 MEQ/L (22.0-26.0); ABG TOTAL CO2 16.6 MEQ/L (23.0-31.0); ABG pH (ARTERIAL) 7.426 UNITS (7.350-7.450)
[2017-01-10] MEDS ORDERED: FUROSEMIDE 40 MG/4 ML VIAL (J1940) IV ONE (12:00)
--- NOTE | 2017-01-10 13:07 | IPNPDOC ---
Subjective Date Seen The patient was seen on 01/10/17. Subjective Chief Complaint/HPI Patient seen and examined at the bedside this morning. According to staff the patient was noted to be restless and agitated overnight, and he subsequently received intravenous Ativan. In addition, the patient was once again noted to be febrile. Upon my evaluation this morning, the patient is drowsy but is answering questions appropriately. Denies any acute complaints of shortness of breath, chest pain, or any pain in general. Objective Physical Examination General Exam: Positive: Alert, Cooperative, No Acute Distress ENT Exam: Positive: Atraumatic, Mucous membr. moist/pink Neck Exam: Positive: JVD Chest Exam: Positive: Rales (faint bibasilar rales noted bilaterally on auscultation), Diminished, Negative: Rhonchi, Wheezing Heart Exam: Positive: Rate Normal, Normal S1, Normal S2 Telemetry: Positive: Sinus, PVCs Abdomen Exam: Positive: Soft, Negative: Tenderness Extremity Exam: Negative: Tenderness, Swelling Assessment /Plan Plan/VTE VTE Prophylaxis Ordered?: Yes Plan Sepsis 2/2 Urinary Tract Infection UA noted from admission Urine Culture notable for E. Coli--susceptibilites noted Blood cultures unrevealing thus far Patient did spike persistent fevers again last night Empiric Abx coverage with Vanco/Meropenem WBC, CRP levels downward trending We will cont to monitor the patient's progress Stage 1 DD CHF, decompensated Patient did have some increased SOB and bibasilar rales noted on auscultation this AM IV Lasix 40mg x 1 was given, and the patient subsequently diuresed 200+ cc's of urine and his respiratory status improved We will cont to monitor the patient's volume/respiratory status and titrate accordingly. 2D ECHO from 2014 as noted above, repeat ECHO ordered Lactic Acidosis 2/2 above, resolved s/p IVF Hydration Acute Kidney Injury superimposed on CKD Stage III Serum Cr 1.30 this AM (Baseline 1.2-1.5) S/P IVF Hydration CT Abd/Pel with no acute findings Hold Nephrotoxins We will cont to monitor serum BMP Hx of CT in 1999, CAD s/p CABG in 2000, Carotid Artery Disease, ?Atrial Fibrillation EKG with no acute ST Changes Patient did have mild elevation troponins (Peak 0.19)--this is likely 2/2 underlying Sepsis 2D ECHO from 2014 notable for Stage 1 DD--Repeat ECHO pending Cont ASA, Statin Not on BB as his HR seems to run borderline low at baseline Eliquis dose renally adjusted to 2.5mg BID Patient denies any c/o chest pain at this time Dyslipidemia Cont Statin DVT Prophylaxis Already on AC Prognosis: Guarded--I did discuss the patient's Code Status with Jessica Parish this AM, she stated that she will be in later this afternoon to further discuss. Dispo-We will continue to monitor the patient's progress with the aforementioned medical management. PT on board for functional optimization. VS, I&O, 24H, Fishbone Vital Signs/I&O Vital Signs Date Time Temp Pulse Resp B/P (MAP) Pulse Ox O2 Delivery O2 Flow Rate FiO2 01/10/17 11:00 102.2 102 158/78 (104) 94 Nasal Cannula 5.0 01/10/17 04:00 17 I&O- Last 24 Hours up to 6 AM 01/10/17 05:59 Intake Total 3160 ml Output Total 645 ml Balance 2515 ml Laboratory Data 24H LABS Laboratory Tests 2 01/10/17 04:53: White Blood Count 12.5H, Red Blood Count 3.45L, Hemoglobin 10.9L, Hematocrit 31.4L, Mean Corpuscular Volume 90.9, Mean Corpuscular Hemoglobin 31.6, Mean Corpuscular Hemoglobin Concent 34.7, Red Cell Distribution Width 13.4, Platelet Count 165, Neutrophils (%) (Auto) 86.9H, Lymphocytes (%) (Auto) 3.6L, Monocytes (%) (Auto) 7.5H, Eosinophils (%) (Auto) 0.4, Basophils (%) (Auto) 0.1, Neutrophils # (Auto) 10.9H, Lymphocytes # (Auto) 0.5L, Monocytes # (Auto) 0.9H, Eosinophils # (Auto) 0.0, Basophils # (Auto) 0.0, Large Unclassified Cells % 1.5 , Large Unclassified Cells # 0.2, Anion Gap 10, Glomerular Filtration Rate 56.1 , Blood Urea Nitrogen 33H, Creatinine 1.30, Sodium Level 140, Potassium Level 4.1, Chloride Level 109H, Carbon Dioxide Level 21, Calcium Level 7.4L, C- Reactive Protein, Quantitative 14.80H 01/10/17 10:12: Anion Gap 8, Glomerular Filtration Rate 49.5, Blood Urea Nitrogen 33H, Creatinine 1.45H, Sodium Level 138, Potassium Level 4.1, Chloride Level 107, Carbon Dioxide Level 23, Calcium Level 7.8L, Magnesium Level 2.2 01/10/17 11:15: Blood Gas Bicarbonate Standard 18.9L, Arterial Blood pH 7.426, Arterial Blood Partial Pressure CO2 24.7L, Arterial Blood Partial Pressure O2 65.6L, Arterial Blood Total CO2 16.6L, Arterial Blood HCO3 15.9L, Arterial Blood Base Excess - 6.8L, Arterial Blood Oxygen Saturation 93.6L, Arterial Blood Gas Puncture Site RT RADIAL 01/10/17 12:10: CBC/BMP Laboratory Tests 01/10/17 04:53 Red Blood Count 3.45 L, Mean Corpuscular Volume 90.9, Mean Corpuscular Hemoglobin 31.6, Mean Corpuscular Hemoglobin Concent 34.7, Red Cell Distribution Width 13.4, Neutrophils (%) (Auto) 86.9 H, Lymphocytes (%) (Auto) 3.6 L, Monocytes (%) (Auto) 7.5 H, Eosinophils (%) (Auto) 0.4, Basophils (%) ( Auto) 0.1, Neutrophils # (Auto) 10.9 H, Lymphocytes # (Auto) 0.5 L, Monocytes # (Auto) 0.9 H, Eosinophils # (Auto) 0.0, Basophils # (Auto) 0.0, Calcium Level 7.4 L 01/10/17 10:12 Calcium Level 7.8 L Microbiology Microbiology 01/09/17 Blood Culture - Preliminary, Resulted No growth after 24 hours . All specim... 01/09/17 Blood Culture - Preliminary, Resulted No growth after 24 hours . All specim... 01/08/17 Blood Culture - Preliminary, Resulted No Growth after 48 hours. All Specime... 01/06/17 Blood Culture - Preliminary, Resulted No Growth after 72 hours. All specime... 01/06/17 Blood Culture - Preliminary, Resulted No Growth after 72 hours. All specime... 01/09/17 Urine Culture, Received Pending 01/06/17 Urine Culture - Final, Complete Escherichia Coli AXEL GLEZ MD Jan 10, 2017 13:07
--- NOTE | 2017-01-10 15:03 | ECGEPIP ---
Stationary ECG Study [facility] Test Date: 2017-01-10 Pat Name: MIMI DEMPSEY Department: Room: [place] [address] Gender: M [employer]: : 1935 Requested By: AXEL GLEZ Order Number: [id number] Reading MD: Hue Kinsey Measurements Intervals [place] Rate: 78 P: DE: 0 QRS: -25 QRSD: 110 T: 119 QT: 405 QTc: 462 Interpretive Statements SINUS RHYTHM WITH BIG 1ST DEGREE BLOCK, PAC'S, PVC BORDERLINE LEFT AXIS DEVIATION, ILBBB POSSIBLE SEPTAL V2 T ABN, NEW ST DEVIATION AND MODERATE T-WAVE ABNORMALITY, CONSIDER LATERAL ISCHEMIA COMPARED WITH 01/06/17 Electronically Signed On 01-10-2017 15:02:53 EDT by Hue Kinsey
[2017-01-11] VITALS: BP 147/70
[2017-01-11] MEDS: ACETAMINOPHEN TAB 650MG DOSE (2X325MG) PO PRN ×4 (01:52→21:30)
[2017-01-11 04:00] VITALS: BP 150/63
[2017-01-11 05:22] LABS: BASO % 0.3 % (0.0-1.0); EOS # 0.1 K/mm3 (0.0-0.50); EOS % 0.9 % (0.0-3.0); LARGE UNSTAINED CELL # 0.2 K/mm3 (0.0-0.4); LARGE UNSTAINED CELL % 1.8 % (0.0-4.0); LYMPH # 0.4 K/mm3 (1.5-4.5); LYMPH % 3.8 % (24.0-44.0); MEAN CORPUSCULAR HEMOGLOBIN 31.1 pg (27.0-33.0); MEAN CORPUSCULAR HGB CONC 34.3 g/dl (32.0-36.5); MEAN CORPUSCULAR VOLUME 90.7 fl (80.0-96.0); MONO # 0.8 K/mm3 (0.0-0.8); MONO % 7.8 % (0.0-5.0); NEUTROPHILS # 8.7 K/mm3 (1.8-7.7); NEUTROPHILS % 85.4 % (36.0-66.0); PLATELET COUNT, AUTOMATED 202 k/mm3 (150-450); RED CELL DISTRIBUTION WIDTH 13.5 % (11.5-14.5); WHITE BLOOD COUNT 10.2 K/mm3 (4.0-10.0)
[2017-01-11] MEDS: MEROPENEM INJ 500 MG in D5W MINI-BAG PLUS 100 ML IV SCH ×3 (05:30→20:01)
[2017-01-11 05:42] LABS: CREATININE FOR GFR 1.27 MG/DL (0.70-1.30); GLOMERULAR FILTRATION RATE 57.7 (>35); POTASSIUM SERUM 3.8 MEQ/L (3.5-5.1)
--- NOTE | 2017-01-11 05:50 | REPUSA ---
CLINICAL HISTORY: Acute renal failure. COMMENTS: The cardiac silhouette is enlarged. There is evidence for pulmonary venous congestion compatible with CHF. There is no definite radiographic evidence for a lung mass or consolidation. Bony structures appear normal. Unremarkable median sternotomy wires. IMPRESSION: 1. Enlarged cardiac silhouette. 2. Pulmonary venous congestion compatible with CHF. Thank you for your kind referral of this patient.
[2017-01-11 05:58] LABS: ERYTHROCYTE SEDIMENTATION RATE 107 mm/hr (0-20)
--- NOTE | 2017-01-11 06:07 | PHACANCOPD ---
PHARMACY VANCOMYCIN DOSING Pt Demographics Demographics Patient Age:81 , Weight:67.100 , Gender: male Adjusted Body Weight Date: 01/09/17, Adjusted Body Weight: [63.4] Kg ACTUAL WT Vancomycin Vancomycin indication: SEPSIS Vancomycin Target Ranges: 10-20 mcg/ml Vancomycin Load Y/N: No Load Dose Date Time Vancomycin Load Dose: Date: Time: Vancomycin Dose Date: 01/09/17. Current Vancomycin Dose: [1 GM IV Q24H@06] Intermittent Dosing?: No Labs Micro Microbiology 01/09/17 Blood Culture - Preliminary, Resulted No Growth after 48 hours. All Specime... 01/09/17 Blood Culture - Preliminary, Resulted No Growth after 48 hours. All Specime... 01/08/17 Blood Culture - Preliminary, Resulted No Growth after 72 hours. All specime... 01/06/17 Blood Culture - Preliminary, Resulted No Growth after 72 hours. All specime... 01/06/17 Blood Culture - Preliminary, Resulted No Growth after 72 hours. All specime... 01/09/17 Urine Culture, Received Pending 01/06/17 Urine Culture - Final, Complete Escherichia Coli Creatinine Clearance Date:01/09/17. Creatinine Clearance: [36.1].CALCULATED Pending Labs VANCO TROUGH DUE 01/11@0500 Assessment and Plan Maintaining Current Dose?: Yes Reason for dose change: No Dose Change Pharmacist Note Pharmacist Note Date: 01/11/17. Pharmacist note:Vancomycin trough drawm this morning reported as 14.2: SCR:1.27 : will maintain current Vancomycin regimen of 1 Gram iv [id number] : will continue to monitor Date: 01/09/17. Pharmacist note:SEPSIS SUSPECTED ;CIPRO DISCONTINUED.TO BEGIN MEROPENEM 500MG IV Q8H AND VANCOMYCIN PER PHARMACY CONSULT.WILL DOSE VANCOMYCIN 1 GM IV Q24H@06,WITH FIRST TROUGH FOR 01/11@0500 PAULA VARELA PHARMACY Jan 11, 2017 06:07
--- NOTE | 2017-01-11 06:13 | ECHO ---
DATE OF PROCEDURE: 01/10/2017 REFERRING PHYSICIAN: Dr. Colin Freeman. INDICATION: Heart failure, unspecified. HEIGHT: 165 cm. WEIGHT: 62 kg. 2D MEASUREMENTS: Left atrium: 4.3 cm Aortic root: 3.1 cm Ventricular septum: 1.11 cm Posterior wall: 1.17 cm Left ventricle diastole: 5.0 cm LVOT: 2.5 cm Inferior vena cava: 2.2 cm DOPPLER MEASUREMENTS: Mild aortic regurgitation. Aortic valve velocity: 139 cm/s LVOT velocity: 69.2 cm/s LVOT VTI: 13.6 cm Moderate mitral regurgitation. Mitral E velocity: 64.7 cm/s Mitral A velocity: 76.0 cm/s DOPPLER MEASUREMENTS: Mild tricuspid regurgitation. Estimated right ventricle systolic pressure at least 68 mmHg assuming a right atrial pressure of at least 20 mmHg. Pulmonary artery systolic pressure 49 mmHg by pulmonary acceleration time method. MITRAL ANNULAR TISSUE DOPPLER: E-prime septal: 4.0 cm/s E-prime lateral: 6.2 cm/s DESCRIPTION: 1. The left ventricle apex was akinetic and the inferior basal segment was akinetic. The remaining LV segments appear to be globally hypokinetic. Left ventricle normal in size and in diastole. Severe reduction of overall LV systolic function. LVEF 25% by visual estimate. 2. Grade 1 LV diastolic dysfunction (impaired relaxation filling pattern). 3. Mild mitral annular calcification. Moderate mitral regurgitation. 4. Moderate left atrial dilatation. 5. Suggestive of severe elevation of estimated right ventricle systolic pressure (at least 69 mmHg). 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 Suggestive of elevated central venous pressure of at least 20 mmHg. 6. Mild aortic valve sclerosis. Mild aortic regurgitation. 7. No pericardial effusion.
[2017-01-11] MEDS: VANCOMYCIN HCL 1,000 MG, VIAL MATE ADAPTER 1 EACH in D5W 250 ML IV SCH (06:30)
[2017-01-11 07:18] LABS: PHOSPHORUS LEVEL 2.3 MG/DL (2.5-4.9)
[2017-01-11 08:00] VITALS: BP 128/73
[2017-01-11] MEDS: ATORVASTATIN 20 MG TAB PO SCH (08:40)
[2017-01-11] MEDS: APIXABAN 5 MG TAB (ELIQUIS) PO SCH ×2 (08:40→20:01)
[2017-01-11] MEDS: ASPIRIN 81 MG ENTERIC TAB PO SCH (08:40)
[2017-01-11] MEDS: SENOKOT S TAB PO SCH ×2 (08:40→20:01)
[2017-01-11] MEDS: DIGOXIN 0.125 MG TAB PO SCH (08:40)
[2017-01-11] MEDS ORDERED: FUROSEMIDE 40 MG/4 ML VIAL (J1940) IV ONE ×2 (10:00→21:00)
[2017-01-11] MEDS: K-PHOS NEUTRAL 250MG TABLET (SOD.PHOSPHATE/POT.PHOSPHATE) PO SCH ×3 (10:24→20:00)
--- NOTE | 2017-01-11 11:29 | IPNPDOC ---
Subjective Date Seen The patient was seen on 01/11/17. Subjective Chief Complaint/HPI Patient seen and examined at the bedside. He is much more alert and oriented this morning, but still remains confused as to why he was brought to the hospital. He is oriented to person, place, and time. He does not offer any acute complaints at this time. Objective Physical Examination General Exam: Positive: Alert, Cooperative, No Acute Distress ENT Exam: Positive: Atraumatic, Mucous membr. moist/pink Neck Exam: Positive: JVD Chest Exam: Positive: Rales (faint bibasilar rales noted bilaterally on auscultation), Diminished, Negative: Rhonchi, Wheezing Heart Exam: Positive: Rate Normal, Normal S1, Normal S2 Telemetry: Positive: Sinus, PVCs Abdomen Exam: Positive: Soft, Negative: Tenderness Extremity Exam: Negative: Tenderness, Swelling Assessment /Plan Plan/VTE VTE Prophylaxis Ordered?: Yes Plan Sepsis 2/2 Urinary Tract Infection UA noted from admission Urine Culture notable for E. 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 2D ECHO from 2014 notable for Stage 1 DD with preserved EF. However, repeat ECHO here notable for severe overall reduction in systolic function with EF of 25%, as well as Stage 1 DD The patient follows with Dr. Lopez of Cardiology--I did discuss the case with his covering partner, Dr. Patel who has suggested that the patient does not need a cardiac catheterization at this time (given current infection, and patient's overall condition). We will continue to diurese the patient with Lasix as renally tolerated, and add Entresto once the patient is volume optimized and his renal function is stable. As for ICD placement, the patient would benefit from that in the future according to Dr. Patel once he is on medically optimized HF therapy, and can follow up in the office for this. Lactic Acidosis 2/2 above, resolved s/p IVF Hydration Acute Kidney Injury superimposed on CKD Stage III Serum Cr 1.30 this AM (Baseline 1.2-1.5) S/P IVF Hydration CT Abd/Pel with no acute findings Hold Nephrotoxins We will cont to monitor serum BMP Hx of [place] in 1999, CAD s/p CABG in 2000, Carotid Artery Disease, ?Atrial Fibrillation EKG with no acute ST Changes Patient did have mild elevation troponins (Peak 0.19)--this is likely 2/2 underlying Sepsis 2D ECHO from 2014 notable for Stage 1 DD--Repeat ECHO noted above Cont ASA, Statin Not on BB as his HR seems to run borderline low at baseline Eliquis dose renally adjusted to 2.5mg BID Will add Entresto when volume optimized with stable renal function Case discussed with Cardio as noted above Dyslipidemia Cont Statin DVT Prophylaxis Already on AC Prognosis: Guarded--I did discuss the patient's Code Status and new findings of worsening Heart Failure with the patient's Jessica Parish and Son Gunnar this AM. They will be coming in later today further discuss. Dispo-We will continue to monitor the patient's progress with the aforementioned medical management. PT on board for functional optimization. VS, I&O, 24H, Fishbone Vital Signs/I&O Vital Signs Date Time Temp Pulse Resp B/P (MAP) Pulse Ox O2 Delivery O2 Flow Rate FiO2 01/11/17 08:40 71 01/11/17 08:00 98.4 01/11/17 08:00 128/73 (91) 99 Nasal Cannula 2.0 01/11/17 04:00 20 I&O- Last 24 Hours up to 6 AM 01/11/17 06:00 Intake Total 650 ml Output Total 1185 ml Balance -535 ml Laboratory Data 24H LABS Laboratory Tests 2 01/10/17 11:15: Blood Gas Bicarbonate Standard 18.9L, Arterial Blood pH 7.426, Arterial Blood Partial Pressure CO2 24.7L, Arterial Blood Partial Pressure O2 65.6L, Arterial Blood Total CO2 16.6L, Arterial Blood HCO3 15.9L, Arterial Blood Base Excess - 6.8L, Arterial Blood Oxygen Saturation 93.6L, Arterial Blood Gas Puncture Site RT RADIAL 01/10/17 12:10: Digoxin Level 1.2 01/11/17 04:50: White Blood Count 10.2H, Red Blood Count 3.58L, Hemoglobin 11.1L, Hematocrit 32.5L, Mean Corpuscular Volume 90.7, Mean Corpuscular Hemoglobin 31.1, Mean Corpuscular Hemoglobin Concent 34.3, Red Cell Distribution Width 13.5, Platelet Count 202, Neutrophils (%) (Auto) 85.4H, Lymphocytes (%) (Auto) 3.8L, Monocytes (%) (Auto) 7.8H, Eosinophils (%) (Auto) 0.9, Basophils (%) (Auto) 0.3, Neutrophils # (Auto) 8.7H, Lymphocytes # (Auto) 0.4L, Monocytes # (Auto) 0.8, Eosinophils # (Auto) 0.1, Basophils # (Auto) 0.0, Large Unclassified Cells % 1.8 , Large Unclassified Cells # 0.2, Erythrocyte Sedimentation Rate 107H, Anion Gap 11, Glomerular Filtration Rate 57.7, Blood Urea Nitrogen 32H, Creatinine 1.27, Sodium Level 142, Potassium Level 3.8, Chloride Level 109H, Carbon Dioxide Level 22, Calcium Level 8.0L, Phosphorus Level 2.3L, C-Reactive Protein , Quantitative 18.80H, Vancomycin Level Trough 14.2 CBC/BMP Laboratory Tests 01/11/17 04:50 Red Blood Count 3.58 L, Mean Corpuscular Volume 90.7, Mean Corpuscular Hemoglobin 31.1, Mean Corpuscular Hemoglobin Concent 34.3, Red Cell Distribution Width 13.5, Neutrophils (%) (Auto) 85.4 H, Lymphocytes (%) (Auto) 3.8 L, Monocytes (%) (Auto) 7.8 H, Eosinophils (%) (Auto) 0.9, Basophils (%) ( Auto) 0.3, Neutrophils # (Auto) 8.7 H, Lymphocytes # (Auto) 0.4 L, Monocytes # ( Auto) 0.8, Eosinophils # (Auto) 0.1, Basophils # (Auto) 0.0, Calcium Level 8.0 L Microbiology Microbiology 01/09/17 Blood Culture - Preliminary, Resulted No Growth after 48 hours. All Specime... 8/22/17 Blood Culture - Preliminary, Resulted No Growth after 48 hours. All Specime... 01/08/17 Blood Culture - Preliminary, Resulted No Growth after 72 hours. All specime... 01/06/17 Blood Culture - Preliminary, Resulted No Growth after 72 hours. All specime... 01/06/17 Blood Culture - Preliminary, Resulted No Growth after 72 hours. All specime... 01/09/17 Urine Culture - Final, Complete 01/06/17 Urine Culture - Final, Complete Escherichia Coli AXEL GLEZ MD Jan 11, 2017 11:29
[2017-01-11 12:00] VITALS: BP 134/74
[2017-01-11 16:00] VITALS: BP 127/58
[2017-01-11 20:00] VITALS: BP 153/72
[2017-01-12 00:10] VITALS: BP 160/67
[2017-01-12 04:00] VITALS: BP 161/71
[2017-01-12] MEDS: MEROPENEM INJ 500 MG in D5W MINI-BAG PLUS 100 ML IV SCH ×3 (04:04→20:05)
[2017-01-12 05:27] LABS: BASO % 0.3 % (0.0-1.0); EOS # 0.2 K/mm3 (0.0-0.50); EOS % 1.6 % (0.0-3.0); LARGE UNSTAINED CELL # 0.3 K/mm3 (0.0-0.4); LARGE UNSTAINED CELL % 2.9 % (0.0-4.0); LYMPH # 0.6 K/mm3 (1.5-4.5); LYMPH % 6.9 % (24.0-44.0); MEAN CORPUSCULAR HGB CONC 34.3 g/dl (32.0-36.5); MEAN CORPUSCULAR VOLUME 90.3 fl (80.0-96.0); MONO # 0.7 K/mm3 (0.0-0.8); MONO % 7.4 % (0.0-5.0); NEUTROPHILS # 7.3 K/mm3 (1.8-7.7); NEUTROPHILS % 80.9 % (36.0-66.0); PLATELET COUNT, AUTOMATED 248 k/mm3 (150-450); RED CELL DISTRIBUTION WIDTH 13.4 % (11.5-14.5)
[2017-01-12 05:37] LABS: CALCIUM LEVEL 7.4 MG/DL (8.8-10.2); CREATININE FOR GFR 1.35 MG/DL (0.70-1.30); GLOMERULAR FILTRATION RATE 53.7 (>35); PHOSPHORUS LEVEL 3.7 MG/DL (2.5-4.9); POTASSIUM SERUM 3.5 MEQ/L (3.5-5.1)
[2017-01-12] MEDS: VANCOMYCIN HCL 1,000 MG, VIAL MATE ADAPTER 1 EACH in D5W 250 ML IV SCH (06:00)
[2017-01-12 08:00] VITALS: BP 184/75
[2017-01-12] MEDS ORDERED: POTASSIUM CHLORIDE 10 MEQ SR TABLET PO ONE (08:00)
[2017-01-12] MEDS: APIXABAN 5 MG TAB (ELIQUIS) PO SCH ×2 (08:31→20:05)
[2017-01-12] MEDS: SENOKOT S TAB PO SCH ×2 (08:32→20:05)
[2017-01-12] MEDS: ATORVASTATIN 20 MG TAB PO SCH (08:32)
[2017-01-12] MEDS: ASPIRIN 81 MG ENTERIC TAB PO SCH (08:32)
[2017-01-12] MEDS ORDERED: FUROSEMIDE 40 MG/4 ML VIAL (J1940) IV ONE ×2 (09:00→21:00)
--- NOTE | 2017-01-12 13:31 | IPNPDOC ---
Subjective Date Seen The patient was seen on 01/12/17. Subjective Chief Complaint/HPI Patient seen and examined at the bedside. Reports that he is tired but denies any other acute complaints. No overnight events noted as per bedside nursing staff. Objective Physical Examination General Exam: Positive: Alert, Cooperative, No Acute Distress ENT Exam: Positive: Atraumatic, Mucous membr. moist/pink Neck Exam: Positive: JVD Chest Exam: Positive: Rales (faint bibasilar rales noted bilaterally on auscultation), Diminished, Negative: Rhonchi, Wheezing Heart Exam: Positive: Rate Normal, Normal S1, Normal S2 Telemetry: Positive: Sinus, PVCs Abdomen Exam: Positive: Soft, Negative: Tenderness Extremity Exam: Negative: Tenderness, Swelling Assessment /Plan Plan/VTE VTE Prophylaxis Ordered?: Yes Plan Sepsis 2/2 Urinary Tract Infection UA noted from admission Urine Culture notable for E. 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 2D ECHO from 2014 notable for Stage 1 DD with preserved EF. However, repeat ECHO here notable for severe overall reduction in systolic function with EF of 25%, as well as Stage 1 DD The patient follows with Dr. Lopez of Cardiology--I did discuss the case with his covering partner, Dr. Patel who has suggested that the patient does not need a cardiac catheterization at this time (given current infection, and patient's overall condition). We will continue to diurese the patient with Lasix as renally tolerated, and add Entresto once the patient is volume optimized and his renal function is stable. As for ICD placement, the patient would benefit from that in the future according to Dr. Patel once he is on medically optimized HF therapy, and can follow up in the office for this. We will try to get the patient a wearable cardioverter defibrillator to bridge him over in the mean time with the assistance of PFS and Cardiology. Lactic Acidosis 2/2 above, resolved s/p IVF Hydration Acute Kidney Injury superimposed on CKD Stage III Serum Cr 1.35 this AM (Baseline 1.2-1.5) S/P IVF Hydration CT Abd/Pel with no acute findings We will cont to monitor serum BMP Hx of [place] in 1999, CAD s/p CABG in 2000, Carotid Artery Disease, ?Atrial Fibrillation EKG with no acute ST Changes Patient did have mild elevation troponins (Peak 0.19)--this is likely 2/2 underlying Sepsis 2D ECHO from 2014 notable for Stage 1 DD--Repeat ECHO noted above Cont ASA, Statin Not on BB as his HR seems to run borderline low at baseline Eliquis dose renally adjusted to 2.5mg BID Will add Entresto when volume optimized with stable renal function Case discussed with Cardio as noted above Dyslipidemia Cont Statin DVT Prophylaxis Already on AC Prognosis: Poor Shelter Prognosis--I did discuss the patient's Code Status and new findings of worsening Heart Failure with the patient's Jessica Parish and Son Gunnar on 01/11/17. The patient and family have decided to be Full Code. MOLST form signed, dated, and placed in the chart. Dispo-We will continue to monitor the patient's progress with the aforementioned medical management. PT on board for functional optimization. VS, I&O, 24H, Fishbone Vital Signs/I&O Vital Signs Date Time Temp Pulse Resp B/P (MAP) Pulse Ox O2 Delivery O2 Flow Rate FiO2 01/12/17 08:00 Nasal Cannula 2.0 01/12/17 08:00 99.9 87 20 184/75 (111) 95 I&O- Last 24 Hours up to 6 AM 01/12/17 05:59 Intake Total 1180 ml Output Total 3145 ml Balance -1965 ml Laboratory Data 24H LABS Laboratory Tests 2 01/12/17 05:08: White Blood Count 9.0, Red Blood Count 3.87L, Hemoglobin 12.0L, Hematocrit 34.9L , Mean Corpuscular Volume 90.3, Mean Corpuscular Hemoglobin 31.0, Mean Corpuscular Hemoglobin Concent 34.3, Red Cell Distribution Width 13.4, Platelet Count 248, Neutrophils (%) (Auto) 80.9H, Lymphocytes (%) (Auto) 6.9L, Monocytes (%) (Auto) 7.4H, Eosinophils (%) (Auto) 1.6, Basophils (%) (Auto) 0.3, Neutrophils # (Auto) 7.3, Lymphocytes # (Auto) 0.6L, Monocytes # (Auto) 0.7, Eosinophils # (Auto) 0.2, Basophils # (Auto) 0.0, Large Unclassified Cells % 2.9 , Large Unclassified Cells # 0.3, Anion Gap 9, Glomerular Filtration Rate 53.7, Blood Urea Nitrogen 32H, Creatinine 1.35H, Sodium Level 141, Potassium Level 3.5 , Chloride Level 104, Carbon Dioxide Level 28, Calcium Level 7.4L, Phosphorus Level 3.7#, C-Reactive Protein, Quantitative 16.70H CBC/BMP Laboratory Tests 01/12/17 05:08 Red Blood Count 3.87 L, Mean Corpuscular Volume 90.3, Mean Corpuscular Hemoglobin 31.0, Mean Corpuscular Hemoglobin Concent 34.3, Red Cell Distribution Width 13.4, Neutrophils (%) (Auto) 80.9 H, Lymphocytes (%) (Auto) 6.9 L, Monocytes (%) (Auto) 7.4 H, Eosinophils (%) (Auto) 1.6, Basophils (%) ( Auto) 0.3, Neutrophils # (Auto) 7.3, Lymphocytes # (Auto) 0.6 L, Monocytes # ( Auto) 0.7, Eosinophils # (Auto) 0.2, Basophils # (Auto) 0.0, Calcium Level 7.4 L Microbiology Microbiology 01/09/17 Blood Culture - Preliminary, Resulted No Growth after 72 hours. All specime... 01/09/17 Blood Culture - Preliminary, Resulted No Growth after 72 hours. All specime... 01/08/17 Blood Culture - Preliminary, Resulted No Growth after 72 hours. All specime... 01/06/17 Blood Culture - Final, Complete NO GROWTH AFTER 5 DAYS 01/06/17 Blood Culture - Final, Complete NO GROWTH AFTER 5 DAYS 01/09/17 Urine Culture - Final, Complete 01/06/17 Urine Culture - Final, Complete Escherichia Coli AXEL GLEZ MD Jan 12, 2017 13:31
[2017-01-12 14:00] VITALS: BP 137/62
[2017-01-12 17:51] VITALS: BP 158/66
[2017-01-12 20:00] VITALS: BP 158/66
[2017-01-12] MEDS: CARVedilol 3.125 MG TAB PO SCH (20:03)
[2017-01-13] VITALS (7 sets, daily range): BP systolic 130–170; BP diastolic 64–77
[2017-01-13] MEDS: MEROPENEM INJ 500 MG in D5W MINI-BAG PLUS 100 ML IV SCH ×3 (04:00→22:01)
[2017-01-13 04:45] LABS: BASO % 0.5 % (0.0-1.0); EOS # 0.2 K/mm3 (0.0-0.50); EOS % 1.7 % (0.0-3.0); LARGE UNSTAINED CELL # 0.3 K/mm3 (0.0-0.4); LARGE UNSTAINED CELL % 3.1 % (0.0-4.0); LYMPH # 1.3 K/mm3 (1.5-4.5); LYMPH % 9.4 % (24.0-44.0); MEAN CORPUSCULAR HEMOGLOBIN 31.5 pg (27.0-33.0); MEAN CORPUSCULAR HGB CONC 35.4 g/dl (32.0-36.5); MONO # 0.6 K/mm3 (0.0-0.8); MONO % 5.9 % (0.0-5.0); NEUTROPHILS # 8.1 K/mm3 (1.8-7.7); NEUTROPHILS % 79.5 % (36.0-66.0); PLATELET COUNT, AUTOMATED 268 k/mm3 (150-450); RED CELL DISTRIBUTION WIDTH 13.6 % (11.5-14.5); WHITE BLOOD COUNT 10.1 K/mm3 (4.0-10.0)
[2017-01-13 05:07] LABS: ANION GAP 10 MEQ/L (8-16); BLOOD UREA NITROGEN 31 MG/DL (7-18); CALCIUM LEVEL 7.5 MG/DL (8.8-10.2); CARBON DIOXIDE LEVEL 27 MEQ/L (21-32); CHLORIDE LEVEL 102 MEQ/L (98-107); CREATININE FOR GFR 1.17 MG/DL (0.70-1.30); GLOMERULAR FILTRATION RATE > 60.0 (>35); GLUCOSE, FASTING 124 MG/DL (83-110); POTASSIUM SERUM 3.8 MEQ/L (3.5-5.1); SODIUM LEVEL 139 MEQ/L (136-145)
[2017-01-13] MEDS: VANCOMYCIN HCL 1,000 MG, VIAL MATE ADAPTER 1 EACH in D5W 250 ML IV SCH (06:04)
[2017-01-13] MEDS ORDERED: FUROSEMIDE 40 MG/4 ML VIAL (J1940) IV ONE (08:15)
[2017-01-13] MEDS ORDERED: POTASSIUM CHLORIDE 10 MEQ SR TABLET PO ONE (08:15)
[2017-01-13] MEDS: APIXABAN 5 MG TAB (ELIQUIS) PO SCH ×2 (08:35→22:02)
[2017-01-13] MEDS: ATORVASTATIN 20 MG TAB PO SCH (08:35)
[2017-01-13] MEDS: ASPIRIN 81 MG ENTERIC TAB PO SCH (08:35)
[2017-01-13] MEDS: SENOKOT S TAB PO SCH ×2 (08:35→22:01)
[2017-01-13] MEDS: CARVedilol 3.125 MG TAB PO SCH ×2 (08:35→21:00)
[2017-01-13] MEDS: ENTRESTO 24-26MG TABLET (SACUBITRIL/VALSARTAN) PO SCH ×2 (13:31→21:00)
--- NOTE | 2017-01-13 15:33 | IPNPDOC ---
Subjective Date Seen The patient was seen on 01/13/17. Subjective Chief Complaint/HPI Patient seen and examined at the bedside this morning. States that he had an uneventful night. He reports that his shortness of breath has significantly improved. However, notes that he still has significant overall weakness. Objective Physical Examination General Exam: Positive: Alert, Cooperative, No Acute Distress ENT Exam: Positive: Atraumatic, Mucous membr. 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 He has maintained a negative fluid balance the last few days. We will cont to monitor the patient's volume/respiratory status and titrate diuretic dosing accordingly. 2D ECHO notable for severe overall reduction in systolic function with EF of 25% , as well as Stage 1 DD We have added Coreg and Entresto to optimize the patient's medical regimen. We will cont to monitor the patient's condition Sepsis 2/2 Urinary Tract Infection UA noted from admission Urine Culture notable for E. Coli--susceptibilites noted Blood cultures unrevealing thus far The patient has been afebrile for the last 36+ hrs Empiric Abx coverage with Vanco/Meropenem--We will de-escalate antibiotic therapy in 24hrs if the patient remains clinically stable WBC normalized, CRP downtrending Patient mentation and clinical condition continues to improve We will cont to monitor the patient's progress Lactic Acidosis 2/2 above, resolved s/p IVF Hydration Acute Kidney Injury superimposed on CKD Stage III Serum Cr 1.17 this AM (Baseline 1.2-1.5) S/P IVF Hydration CT Abd/Pel with no acute findings We will cont to monitor serum BMP Hx of [place] in 1999, CAD s/p CABG in 2000, Carotid Artery Disease, ?Atrial Fibrillation EKG with no acute ST Changes Patient did have mild elevation of troponins (Peak 0.19)--this is likely 2/2 underlying Sepsis 2D ECHO from 2014 notable for Stage 1 DD--Repeat ECHO noted above Cont ASA, Statin, Entresto and Coreg Eliquis dose renally adjusted to 2.5mg BID Case discussed with Cardio Dyslipidemia Cont Statin DVT Prophylaxis Already on AC 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 The patient and family have decided to be Full Code. MOLST form signed, dated, and placed in the chart. Dispo-We will continue to monitor the patient's progress with the aforementioned medical management. PT on board for functional optimization. VS, I&O, 24H, Fishbone Vital Signs/I&O Vital Signs Date Time Temp Pulse Resp B/P (MAP) Pulse Ox O2 Delivery O2 Flow Rate FiO2 01/13/17 11:26 99.1 76 22 157/74 (101) 94 Room Air 01/12/17 08:00 2.0 I&O- Last 24 Hours up to 6 AM 01/13/17 06:00 Intake Total 240 ml Output Total 3150 ml Balance -2910 ml Laboratory Data 24H LABS Laboratory Tests 2 01/13/17 04:32: White Blood Count 10.1H, Red Blood Count 3.80L, Hemoglobin 12.0L, Hematocrit 33.9L, Mean Corpuscular Volume 89.0, Mean Corpuscular Hemoglobin 31.5, Mean Corpuscular Hemoglobin Concent 35.4, Red Cell Distribution Width 13.6, Platelet Count 268, Neutrophils (%) (Auto) 79.5H, Lymphocytes (%) (Auto) 9.4L, Monocytes (%) (Auto) 5.9H, Eosinophils (%) (Auto) 1.7, Basophils (%) (Auto) 0.5, Neutrophils # (Auto) 8.1H, Lymphocytes # (Auto) 1.3L, Monocytes # (Auto) 0.6, Eosinophils # (Auto) 0.2, Basophils # (Auto) 0.0, Large Unclassified Cells % 3.1 , Large Unclassified Cells # 0.3, Anion Gap 10, Glomerular Filtration Rate > 60.0, Blood Urea Nitrogen 31H, Creatinine 1.17, Sodium Level 139, Potassium Level 3.8, Chloride Level 102, Carbon Dioxide Level 27, Calcium Level 7.5L, C- Reactive Protein, Quantitative 13.00H CBC/BMP Laboratory Tests 01/13/17 04:32 Red Blood Count 3.80 L, Mean Corpuscular Volume 89.0, Mean Corpuscular Hemoglobin 31.5, Mean Corpuscular Hemoglobin Concent 35.4, Red Cell Distribution Width 13.6, Neutrophils (%) (Auto) 79.5 H, Lymphocytes (%) (Auto) 9.4 L, Monocytes (%) (Auto) 5.9 H, Eosinophils (%) (Auto) 1.7, Basophils (%) ( Auto) 0.5, Neutrophils # (Auto) 8.1 H, Lymphocytes # (Auto) 1.3 L, Monocytes # ( Auto) 0.6, Eosinophils # (Auto) 0.2, Basophils # (Auto) 0.0, Calcium Level 7.5 L Microbiology Microbiology 01/09/17 Blood Culture - Preliminary, Resulted No Growth after 72 hours. All specime... 01/09/17 Blood Culture - Preliminary, Resulted No Growth after 72 hours. All specime... 01/08/17 Blood Culture - Final, Complete NO GROWTH AFTER 5 DAYS 01/06/17 Blood Culture - Final, Complete NO GROWTH AFTER 5 DAYS 01/06/17 Blood Culture - Final, Complete NO GROWTH AFTER 5 DAYS 01/09/17 Urine Culture - Final, Complete 01/06/17 Urine Culture - Final, Complete Escherichia Coli AXEL GLEZ MD Jan 13, 2017 15:33
[2017-01-14 04:00] VITALS: BP 160/70
[2017-01-14 05:09] LABS: BASO % 0.4 % (0.0-1.0); EOS # 0.3 K/mm3 (0.0-0.50); EOS % 2.9 % (0.0-3.0); LARGE UNSTAINED CELL # 0.3 K/mm3 (0.0-0.4); LARGE UNSTAINED CELL % 2.6 % (0.0-4.0); LYMPH # 1.5 K/mm3 (1.5-4.5); LYMPH % 11.8 % (24.0-44.0); MEAN CORPUSCULAR HGB CONC 34.5 g/dl (32.0-36.5); MEAN CORPUSCULAR VOLUME 89.9 fl (80.0-96.0); MONO # 0.6 K/mm3 (0.0-0.8); MONO % 5.6 % (0.0-5.0); NEUTROPHILS # 7.7 K/mm3 (1.8-7.7); NEUTROPHILS % 76.6 % (36.0-66.0); PLATELET COUNT, AUTOMATED 298 k/mm3 (150-450); RED CELL DISTRIBUTION WIDTH 13.5 % (11.5-14.5); WHITE BLOOD COUNT 10.1 K/mm3 (4.0-10.0)
[2017-01-14 05:28] LABS: ANION GAP 9 MEQ/L (8-16); BLOOD UREA NITROGEN 32 MG/DL (7-18); CALCIUM LEVEL 7.8 MG/DL (8.8-10.2); CARBON DIOXIDE LEVEL 27 MEQ/L (21-32); CHLORIDE LEVEL 103 MEQ/L (98-107); CREATININE FOR GFR 1.11 MG/DL (0.70-1.30); GLOMERULAR FILTRATION RATE > 60.0 (>35); GLUCOSE, FASTING 100 MG/DL (83-110); POTASSIUM SERUM 4.6 MEQ/L (3.5-5.1); SODIUM LEVEL 139 MEQ/L (136-145)
[2017-01-14] MEDS: MEROPENEM INJ 500 MG in D5W MINI-BAG PLUS 100 ML IV SCH (05:35)
[2017-01-14] MEDS: VANCOMYCIN HCL 1,000 MG, VIAL MATE ADAPTER 1 EACH in D5W 250 ML IV SCH (06:11)
[2017-01-14 08:00] VITALS: BP 130/71
[2017-01-14] MEDS: APIXABAN 5 MG TAB (ELIQUIS) PO SCH ×2 (08:12→21:06)
[2017-01-14] MEDS: SENOKOT S TAB PO SCH ×2 (08:12→21:00)
[2017-01-14] MEDS: ATORVASTATIN 20 MG TAB PO SCH (08:12)
[2017-01-14] MEDS: ASPIRIN 81 MG ENTERIC TAB PO SCH (08:12)
[2017-01-14] MEDS: ENTRESTO 24-26MG TABLET (SACUBITRIL/VALSARTAN) PO SCH ×2 (08:13→21:06)
[2017-01-14] MEDS: CARVedilol 3.125 MG TAB PO SCH ×2 (08:13→21:06)
[2017-01-14] MEDS: FUROSEMIDE 40 MG TAB PO SCH (10:41)
--- NOTE | 2017-01-14 12:19 | IPNPDOC ---
Subjective Date Seen The patient was seen on 01/14/17. Subjective Chief Complaint/HPI Patient seen and examined at the bedside this morning. States that he feels generally tired, but does not endorse any acute complaints at this time. Objective Physical Examination General Exam: Positive: Alert, Cooperative, No Acute Distress ENT Exam: Positive: Atraumatic, Mucous membr. 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 He has maintained a negative fluid balance the last few days. We will cont to monitor the patient's volume/respiratory status and titrate diuretic dosing accordingly. 2D ECHO notable for severe overall reduction in systolic function with EF of 25% , as well as Stage 1 DD We have added Coreg and Entresto to optimize the patient's medical regimen. We will cont to monitor the patient's condition Sepsis 2/2 Urinary Tract Infection UA noted from admission Urine Culture notable for E. Coli--susceptibilites noted Blood cultures unrevealing thus far The patient has been afebrile Empiric Abx coverage with Vanco/Meropenem de-escalated to Levaquin for 2 more days WBC normalized, CRP downtrending Patient mentation and clinical condition continues to improve We will cont to monitor the patient's progress Lactic Acidosis 2/2 above, resolved s/p IVF Hydration Acute Kidney Injury superimposed on CKD Stage III Serum Cr 1.1 this AM (Baseline 1.2-1.5) S/P IVF Hydration CT Abd/Pel with no acute findings We will cont to monitor serum BMP Hx of [place] in 1999, CAD s/p CABG in 2000, Carotid Artery Disease, ?Atrial Fibrillation EKG with no acute ST Changes Patient did have mild elevation of troponins (Peak 0.19)--this is likely 2/2 underlying Sepsis 2D ECHO from 2014 notable for Stage 1 DD--Repeat ECHO noted above Cont ASA, Statin, Entresto and Coreg Eliquis dose renally adjusted to 2.5mg BID Case discussed with Cardio Dyslipidemia Cont Statin DVT Prophylaxis Already on AC 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 The patient and family have decided to be Full Code. MOLST form signed, dated, and placed in the chart. Dispo-We will continue to monitor the patient's progress with the aforementioned medical management. PT on board for functional optimization. VS, I&O, 24H, Fishbone Vital Signs/I&O Vital Signs Date Time Temp Pulse Resp B/P (MAP) Pulse Ox O2 Delivery O2 Flow Rate FiO2 01/14/17 08:13 74 130/71 01/14/17 08:10 Room Air 01/14/17 08:00 98.9 18 94 01/12/17 08:00 2.0 I&O- Last 24 Hours up to 6 AM 01/14/17 06:00 Intake Total 460 ml Output Total 1050 ml Balance -590 ml Laboratory Data 24H LABS Laboratory Tests 2 01/14/17 04:57: White Blood Count 10.1H, Red Blood Count 3.75L, Hemoglobin 11.6L, Hematocrit 33.7L, Mean Corpuscular Volume 89.9, Mean Corpuscular Hemoglobin 31.0, Mean Corpuscular Hemoglobin Concent 34.5, Red Cell Distribution Width 13.5, Platelet Count 298, Neutrophils (%) (Auto) 76.6H, Lymphocytes (%) (Auto) 11.8L, Monocytes (%) (Auto) 5.6H, Eosinophils (%) (Auto) 2.9, Basophils (%) (Auto) 0.4 , Neutrophils # (Auto) 7.7, Lymphocytes # (Auto) 1.5, Monocytes # (Auto) 0.6, Eosinophils # (Auto) 0.3, Basophils # (Auto) 0.0, Large Unclassified Cells % 2.6 , Large Unclassified Cells # 0.3, Anion Gap 9, Glomerular Filtration Rate > 60.0 , Blood Urea Nitrogen 32H, Creatinine 1.11, Sodium Level 139, Potassium Level 4.6#, Chloride Level 103, Carbon Dioxide Level 27, Calcium Level 7.8L, C- Reactive Protein, Quantitative 9.14H, Vancomycin Level Trough 18.2 CBC/BMP Laboratory Tests 01/14/17 04:57 Red Blood Count 3.75 L, Mean Corpuscular Volume 89.9, Mean Corpuscular Hemoglobin 31.0, Mean Corpuscular Hemoglobin Concent 34.5, Red Cell Distribution Width 13.5, Neutrophils (%) (Auto) 76.6 H, Lymphocytes (%) (Auto) 11.8 L, Monocytes (%) (Auto) 5.6 H, Eosinophils (%) (Auto) 2.9, Basophils (%) ( Auto) 0.4, Neutrophils # (Auto) 7.7, Lymphocytes # (Auto) 1.5, Monocytes # (Auto ) 0.6, Eosinophils # (Auto) 0.3, Basophils # (Auto) 0.0, Calcium Level 7.8 L Microbiology Microbiology 01/09/17 Blood Culture - Final, Complete NO GROWTH AFTER 5 DAYS 01/09/17 Blood Culture - Final, Complete NO GROWTH AFTER 5 DAYS 01/08/17 Blood Culture - Final, Complete NO GROWTH AFTER 5 DAYS 01/06/17 Blood Culture - Final, Complete NO GROWTH AFTER 5 DAYS 01/06/17 Blood Culture - Final, Complete NO GROWTH AFTER 5 DAYS 01/09/17 Urine Culture - Final, Complete 01/06/17 Urine Culture - Final, Complete Escherichia Coli AXEL GLEZ MD Jan 14, 2017 12:19
[2017-01-14 16:00] VITALS: BP 172/68
[2017-01-14 20:05] VITALS: BP 168/68
[2017-01-14 23:31] VITALS: BP 153/70
[2017-01-15] MEDS: LACTOBACILLUS ACIDOPHILUS CAP (BACID) PO SCH ×3 (01:15→20:22)
[2017-01-15 04:13] VITALS: BP 139/62
[2017-01-15 05:37] LABS: BASO % 0.5 % (0.0-1.0); EOS # 0.2 K/mm3 (0.0-0.50); EOS % 2.2 % (0.0-3.0); LARGE UNSTAINED CELL # 0.2 K/mm3 (0.0-0.4); LARGE UNSTAINED CELL % 2.4 % (0.0-4.0); LYMPH # 1.3 K/mm3 (1.5-4.5); LYMPH % 10.4 % (24.0-44.0); MEAN CORPUSCULAR HEMOGLOBIN 31.1 pg (27.0-33.0); MEAN CORPUSCULAR VOLUME 91.4 fl (80.0-96.0); MONO # 0.6 K/mm3 (0.0-0.8); MONO % 6.3 % (0.0-5.0); NEUTROPHILS # 7.8 K/mm3 (1.8-7.7); NEUTROPHILS % 78.1 % (36.0-66.0); PLATELET COUNT, AUTOMATED 340 k/mm3 (150-450); RED CELL DISTRIBUTION WIDTH 13.4 % (11.5-14.5)
[2017-01-15 05:44] LABS: ANION GAP 8 MEQ/L (8-16); BLOOD UREA NITROGEN 28 MG/DL (7-18); CALCIUM LEVEL 7.7 MG/DL (8.8-10.2); CARBON DIOXIDE LEVEL 26 MEQ/L (21-32); CHLORIDE LEVEL 104 MEQ/L (98-107); GLOMERULAR FILTRATION RATE > 60.0 (>35); GLUCOSE, FASTING 93 MG/DL (83-110); POTASSIUM SERUM 4.5 MEQ/L (3.5-5.1); SODIUM LEVEL 138 MEQ/L (136-145)
[2017-01-15 07:58] VITALS: BP 136/69
[2017-01-15] MEDS ORDERED: LevoFLOXacin 500 MG TABLET PO ONE (09:00)
[2017-01-15] MEDS: ATORVASTATIN 20 MG TAB PO SCH (09:04)
[2017-01-15] MEDS: FUROSEMIDE 40 MG TAB PO SCH (09:04)
[2017-01-15] MEDS: ENTRESTO 24-26MG TABLET (SACUBITRIL/VALSARTAN) PO SCH ×2 (09:04→20:22)
[2017-01-15] MEDS: ASPIRIN 81 MG ENTERIC TAB PO SCH (09:04)
[2017-01-15] MEDS: APIXABAN 5 MG TAB (ELIQUIS) PO SCH ×2 (09:04→20:23)
[2017-01-15] MEDS: CARVedilol 3.125 MG TAB PO SCH ×2 (09:05→20:23)
[2017-01-15] MEDS: SENOKOT S TAB PO SCH ×2 (09:14→20:21)
[2017-01-15 11:37] VITALS: BP 147/62
--- NOTE | 2017-01-15 12:25 | IPNPDOC ---
Subjective Date Seen The patient was seen on 01/15/17. Subjective Chief Complaint/HPI Patient seen and examined at the bedside. States that he is feeling better, denies any acute complaints at this time. Objective Physical Examination General Exam: Positive: Alert, Cooperative, No Acute Distress ENT Exam: Positive: Atraumatic, Mucous membr. 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 We will cont to monitor the patient's volume/respiratory status and titrate diuretic dosing accordingly. 2D ECHO notable for severe overall reduction in systolic function with EF of 25% , as well as Stage 1 DD We have added Coreg and Entresto to optimize the patient's medical regimen. Case was discussed with Dr. Patel of Cardiology---The patient would benefit from a Life-Vest until he gets an ICD placement, will try to coordinate this with Cardiology We will cont to monitor the patient's condition Sepsis 2/2 Urinary Tract Infection UA noted from admission Urine Culture notable for E. Coli--susceptibilites noted Blood cultures unrevealing thus far The patient has been afebrile s/p completion of Abx WBC normalized, CRP downtrending Patient mentation and clinical condition continues to improve We will cont to monitor the patient's progress Lactic Acidosis 2/2 above, resolved s/p IVF Hydration Acute Kidney Injury superimposed on CKD Stage III, resolved Serum Cr 1.2 this AM (Baseline 1.2-1.5) S/P IVF Hydration CT Abd/Pel with no acute findings We will cont to monitor serum BMP Hx of [place] in 1999, CAD s/p CABG in 2000, Carotid Artery Disease, ?Atrial Fibrillation EKG with no acute ST Changes Patient did have mild elevation of troponins (Peak 0.19)--this is likely 2/2 underlying Sepsis 2D ECHO from 2014 notable for Stage 1 DD--Repeat ECHO noted above Cont ASA, Statin, Entresto and Coreg Eliquis dose renally adjusted to 2.5mg BID Case discussed with Cardio Dyslipidemia Cont Statin DVT Prophylaxis Already on AC 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 The patient and family have decided to be Full Code. MOLST form signed, dated, and placed in the chart. Dispo-We will continue to monitor the patient's progress with the aforementioned medical management. PT on board for functional optimization. VS, I&O, 24H, Fishbone Vital Signs/I&O Vital Signs Date Time Temp Pulse Resp B/P (MAP) Pulse Ox O2 Delivery O2 Flow Rate FiO2 01/15/17 11:37 97.7 69 18 147/62 (90) 94 Room Air 01/12/17 08:00 2.0 I&O- Last 24 Hours up to 6 AM 01/15/17 05:59 Intake Total 1160 ml Output Total 500 ml Balance 660 ml Laboratory Data 24H LABS Laboratory Tests 2 01/15/17 04:56: White Blood Count 10.0, Red Blood Count 3.93L, Hemoglobin 12.2L, Hematocrit 35.9L, Mean Corpuscular Volume 91.4, Mean Corpuscular Hemoglobin 31.1, Mean Corpuscular Hemoglobin Concent 34.0, Red Cell Distribution Width 13.4, Platelet Count 340, Neutrophils (%) (Auto) 78.1H, Lymphocytes (%) (Auto) 10.4L, Monocytes (%) (Auto) 6.3H, Eosinophils (%) (Auto) 2.2, Basophils (%) (Auto) 0.5 , Neutrophils # (Auto) 7.8H, Lymphocytes # (Auto) 1.3L, Monocytes # (Auto) 0.6, Eosinophils # (Auto) 0.2, Basophils # (Auto) 0.0, Large Unclassified Cells % 2.4 , Large Unclassified Cells # 0.2, Anion Gap 8, Glomerular Filtration Rate > 60.0 , Blood Urea Nitrogen 28H, Creatinine 1.20, Sodium Level 138, Potassium Level 4.5, Chloride Level 104, Carbon Dioxide Level 26, Calcium Level 7.7L, C- Reactive Protein, Quantitative 6.77H CBC/BMP Laboratory Tests 01/15/17 04:56 Red Blood Count 3.93 L, Mean Corpuscular Volume 91.4, Mean Corpuscular Hemoglobin 31.1, Mean Corpuscular Hemoglobin Concent 34.0, Red Cell Distribution Width 13.4, Neutrophils (%) (Auto) 78.1 H, Lymphocytes (%) (Auto) 10.4 L, Monocytes (%) (Auto) 6.3 H, Eosinophils (%) (Auto) 2.2, Basophils (%) ( Auto) 0.5, Neutrophils # (Auto) 7.8 H, Lymphocytes # (Auto) 1.3 L, Monocytes # ( Auto) 0.6, Eosinophils # (Auto) 0.2, Basophils # (Auto) 0.0, Calcium Level 7.7 L Microbiology Microbiology 01/09/17 Blood Culture - Final, Complete NO GROWTH AFTER 5 DAYS 01/09/17 Blood Culture - Final, Complete NO GROWTH AFTER 5 DAYS 01/08/17 Blood Culture - Final, Complete NO GROWTH AFTER 5 DAYS 01/06/17 Blood Culture - Final, Complete NO GROWTH AFTER 5 DAYS 01/06/17 Blood Culture - Final, Complete NO GROWTH AFTER 5 DAYS 01/09/17 Urine Culture - Final, Complete 01/06/17 Urine Culture - Final, Complete Escherichia Coli AXEL GLEZ MD Jan 15, 2017 12:25
[2017-01-15 16:00] VITALS: BP 140/62
[2017-01-15 20:19] VITALS: BP 142/61
[2017-01-16] VITALS (8 sets, daily range): BP systolic 105–145; BP diastolic 53–65
[2017-01-16] MEDS: ENTRESTO 24-26MG TABLET (SACUBITRIL/VALSARTAN) PO SCH ×2 (08:40→21:41)
[2017-01-16] MEDS: FUROSEMIDE 40 MG TAB PO SCH (08:40)
[2017-01-16] MEDS: ATORVASTATIN 20 MG TAB PO SCH (08:40)
[2017-01-16] MEDS: LACTOBACILLUS ACIDOPHILUS CAP (BACID) PO SCH ×2 (08:40→21:41)
[2017-01-16] MEDS: ASPIRIN 81 MG ENTERIC TAB PO SCH (08:40)
[2017-01-16] MEDS: APIXABAN 5 MG TAB (ELIQUIS) PO SCH ×2 (08:40→21:41)
[2017-01-16] MEDS: CARVedilol 3.125 MG TAB PO SCH ×3 (08:40→21:41)
[2017-01-16] MEDS: SENOKOT S TAB PO SCH ×2 (08:41→21:41)
[2017-01-16] MEDS ORDERED: LevoFLOXacin 250 MG TABLET PO ONE (09:00)
--- NOTE | 2017-01-16 17:27 | IPN ---
DATE: 01/16/2017 SUBJECTIVE: The patient is seen and examined in the room today. The patient denies any palpitations or chest pain. Denies any shortness of breath. The patient has good oral intake. Now ventricular tachycardia detected on the telemetry. OBJECTIVE: VITAL SIGNS: Temperature is 98.6, pulse is 71, respirations 18, blood pressure is 137/60, pulse oximetry is 97% in room air. GENERAL: No sign of acute distress. The patient is alert and awake, able to answer questions. I checked on the patient later after the morning round and the patient started to show some brief moments of confusion. HEENT: Normocephalic, atraumatic. Extraocular motor grossly intact. CARDIOVASCULAR: Positive S1, S2, regular rate. LUNGS: Clear to auscultation bilaterally. ABDOMEN: Soft, nontender. EXTREMITIES: No edema. No sign of cyanosis. LABORATORY DATA: C-reactive protein is 5.43. ASSESSMENT AND PLAN: 1. Sepsis, secondary to urinary tract infection. Urine culture positive for Escherichia (E) coli. The patient was on ciprofloxacin from 01/06/2017 to 01/09/2017. Due to the persistent fever, the patient's antibiotic was switched to vancomycin and meropenem. Antibiotic was started from 01/09/2017 to 01/14/2017. The patient finished a course of antibiotic regimen. White blood cell (WBC) count shows significant improvement. Today it is within normal range. C-reactive protein also continues to trend down. On presentation, the patient had a C-reactive protein of 18.8, now today the C-reactive protein is 5.43. We will continue to monitor the patient. At this moment, the patient is hemodynamically stable. 2. 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 Cardiac echocardiogram was performed on 01/10/2017. The patient was found to have an ejection fraction (EF) of 25%. The patient also has a grade 1 left diastolic dysfunction. The patient was receiving IV Lasix previously to achieve a negative fluid balance and then Lasix was switched to oral 40 mg daily since 01/09/2017. We will continue monitoring the patient's intake and output. At this moment, the patient is breathing comfortably in room air and does not require any oxygen support. 3. Lactic acidosis, secondary to sepsis, resolved. The patient had IV resuscitation. 4. Acute on chronic kidney disease. The patient has baseline chronic kidney disease (CKD), stage III. Acute kidney injury secondary to prerenal azotemia. The patient had fluid resuscitation. Renal function has returned to baseline since 01/13/2017. 5. History of myocardial infarction (NE) in 1999. Coronary artery bypass graft (CABG) in 2000. Cardiac echogram was performed in 2014 which showed grade 1 diastolic heart failure. Cardiac echogram performed on 01/10/2017 showed that the patient has an EF of 25% and grade 1 diastolic dysfunction. The patient is on aspirin and statin. The patient is also taking Eliquis. The case was discussed with the improvement advisor, Dr. Patel, over the phone previously. He recommended Entresto. I also reached out to Dr. Patel today to discuss the case. Dr. Patel strongly believes that the patient does not need to start on the life vest at this moment. Dr. Patel will follow the patient in the outpatient setting. The patient does not feel that the patient requires inpatient consultation with Dr. Patel. 6. Dyslipidemia, on statin. 7. Deep vein thrombosis (DVT) prophylaxis, on Eliquis. DISPOSITION: Currently, the patient still requires a few more sessions from the physical therapy. We will continue monitoring the patient. At this moment, the patient is not cleared for discharge.
[2017-01-17 03:27] VITALS: BP 143/66
[2017-01-17 05:40] LABS: MEAN CORPUSCULAR HEMOGLOBIN 30.9 pg (27.0-33.0); MEAN CORPUSCULAR HGB CONC 34.3 g/dl (32.0-36.5); MEAN CORPUSCULAR VOLUME 90.1 fl (80.0-96.0); RED CELL DISTRIBUTION WIDTH 13.5 % (11.5-14.5); WHITE BLOOD COUNT 10.2 K/mm3 (4.0-10.0)
[2017-01-17 05:56] LABS: CALCIUM LEVEL 8.6 MG/DL (8.8-10.2); CREATININE FOR GFR 1.43 MG/DL (0.70-1.30); GLOMERULAR FILTRATION RATE 50.3 (>35); POTASSIUM SERUM 4.4 MEQ/L (3.5-5.1)
[2017-01-17 08:00] VITALS: BP 119/59
[2017-01-17] MEDS: CARVedilol 3.125 MG TAB PO SCH ×2 (08:48→20:38)
[2017-01-17] MEDS: ENTRESTO 24-26MG TABLET (SACUBITRIL/VALSARTAN) PO SCH ×2 (08:48→20:39)
[2017-01-17] MEDS ORDERED: FUROSEMIDE 20 MG TAB PO SCH (09:00)
[2017-01-17] MEDS ORDERED: FUROSEMIDE 40 MG TAB PO SCH (09:00)
[2017-01-17] MEDS: ATORVASTATIN 20 MG TAB PO SCH (09:04)
[2017-01-17] MEDS: APIXABAN 5 MG TAB (ELIQUIS) PO SCH ×2 (09:04→20:40)
[2017-01-17] MEDS: SENOKOT S TAB PO SCH ×2 (09:04→20:40)
[2017-01-17] MEDS: ASPIRIN 81 MG ENTERIC TAB PO SCH (09:04)
[2017-01-17] MEDS: LACTOBACILLUS ACIDOPHILUS CAP (BACID) PO SCH ×2 (09:04→20:40)
[2017-01-17] MEDS ORDERED: SLF 3 ML SYR IV PRN (09:15)
[2017-01-17 12:00] VITALS: BP 132/60
[2017-01-17] MEDS: SLF 3 ML SYR IV SCH ×2 (12:34→20:41)
[2017-01-17 16:00] VITALS: BP 146/61
--- NOTE | 2017-01-17 16:05 | IPN ---
DATE: 01/17/2017 SUBJECTIVE: The patient is seen and examined in the room today. The patient had an episode of confusion yesterday in the late afternoon. This morning, during morning rounds, the patient is alert and oriented times three, able to answer questions properly. No significant events reported on telemetry. The patient still has sinus tachycardia with significant first degree AV block with frequent PVCs and PACs. OBJECTIVE: VITAL SIGNS: Temperature is 98.3, pulse is 96, respirations 18, blood pressure is 119/59, pulse oximetry is 99% in room air. GENERAL: No sign of acute distress. Alert and oriented times three. HEENT: Normocephalic, atraumatic. Extraocular motor grossly intact. CARDIOVASCULAR: Positive S1, S2, regular rate. On telemetry, the patient does have first degree AV block with frequent PVCs and PACs. LUNGS: Clear to auscultation bilaterally. ABDOMEN: Soft, nontender. EXTREMITIES: No edema. No sign of cyanosis. LABORATORY DATA: WBC 10.3, hemoglobin 12.1, hematocrit 35.4, platelet count is 459. Sodium is 139, potassium 4.4, chloride 104, carbon dioxide 25, BUN is 31, creatinine 1.43, GFR is 50.3, fasting glucose is 125, calcium is 8.6, C-reactive protein is 3.87. ASSESSMENT AND PLAN: 1. Sepsis, secondary to urinary tract infection. Urine culture grew positive for Escherichia (E) coli. The patient has finished a course of antibiotic. C-reactive protein continues to trend down. At this moment, the patient is hemodynamically stable. 2. 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 Cardiac echocardiogram was performed on 01/10/2017. The patient was found to have an ejection fraction (EF) of 25%. Previous echocardiogram performed showed the patient had a grade 1 diastolic dysfunction. The patient has been receiving intermittent IV Lasix. The patient was switched to Lasix 40 mg by mouth daily since 01/09/2017. The patient does have fluctuation of input and output. Continue to monitor. Adjust diuretic regimen as needed. 3. Lactic acidosis. 4. Acute kidney injury. On the day of admission, the patient had a creatinine of 1.74. The patient's fluid status is being monitored. Diuretic regimen has been adjusted since 01/13/2017. Renal function has returned to baseline; however, in the last 24 hours the patient has acute kidney injury. The patient's input, output and daily weights were evaluated. In the past few days, the patient has been having significant positive fluid balance. Monitor closely. The patient started to have a net negative balance. We will continue to monitor to see if the patient's renal function will recover and we will adjust the medication as needed. 5. History of myocardial infarction ([place]) in 1999. Coronary artery bypass graft (CABG) in 2000. Cardiac echocardiogram performed in 2014 showed grade 1 diastolic congestive heart failure (CHF). Echocardiogram performed on 01/10/2017 showed ejection fraction of 25% and grade 1 diastolic dysfunction. The patient is on aspirin and statin. The patient is also on Eliquis. The patient has a [employer], Dr. Lopez, however, Dr. Lopez has been on vacation. We have reached out to Dr. Patel multiple times regarding the patient's management. It is recommended that the patient be started on Entresto. The patient should follow outpatient regarding the patient's low ejection fraction. At this moment, the patient does not have any nonsustained ventricular tachycardia or syncope episode. 6. Dyslipidemia, on statin. 7. Deep vein thrombosis (DVT) prophylaxis, on Eliquis. DISPOSITION: Currently, the patient is not cleared by physical therapy for discharge. We will continue to follow. ROCIO
[2017-01-17 19:52] VITALS: BP 148/64
[2017-01-17 23:59] VITALS: BP 162/68
[2017-01-18 04:00] VITALS: BP 176/77
[2017-01-18] MEDS: SLF 3 ML SYR IV SCH ×3 (05:26→21:34)
[2017-01-18 05:30] LABS: MEAN CORPUSCULAR HGB CONC 33.1 g/dl (32.0-36.5); MEAN CORPUSCULAR VOLUME 90.6 fl (80.0-96.0); RED CELL DISTRIBUTION WIDTH 13.4 % (11.5-14.5); WHITE BLOOD COUNT 10.1 K/mm3 (4.0-10.0)
[2017-01-18 05:49] LABS: CALCIUM LEVEL 8.8 MG/DL (8.8-10.2); CREATININE FOR GFR 1.54 MG/DL (0.70-1.30); GLOMERULAR FILTRATION RATE 46.2 (>35); POTASSIUM SERUM 4.4 MEQ/L (3.5-5.1)
[2017-01-18 08:00] VITALS: BP 143/65
[2017-01-18] MEDS ORDERED: SODIUM CHLORIDE 0.9% 1000 ML IV ONE (08:30)
[2017-01-18] MEDS: ASPIRIN 81 MG ENTERIC TAB PO SCH (08:35)
[2017-01-18] MEDS: APIXABAN 5 MG TAB (ELIQUIS) PO SCH ×2 (08:35→21:30)
[2017-01-18] MEDS: SENOKOT S TAB PO SCH ×2 (08:35→21:31)
[2017-01-18] MEDS: LACTOBACILLUS ACIDOPHILUS CAP (BACID) PO SCH ×2 (08:35→21:30)
[2017-01-18] MEDS: ATORVASTATIN 20 MG TAB PO SCH (08:35)
[2017-01-18] MEDS: CARVedilol 3.125 MG TAB PO SCH ×2 (08:36→21:32)
[2017-01-18] MEDS: ENTRESTO 24-26MG TABLET (SACUBITRIL/VALSARTAN) PO SCH ×2 (08:36→21:00)
[2017-01-18 12:00] VITALS: BP 142/66
[2017-01-18 12:50] LABS: BASO # 0.1 K/mm3 (0.0-0.2); BASO % 0.7 % (0.0-1.0); EOS # 0.1 K/mm3 (0.0-0.50); EOS % 1.2 % (0.0-3.0); LARGE UNSTAINED CELL # 0.3 K/mm3 (0.0-0.4); LYMPH # 1.8 K/mm3 (1.5-4.5); LYMPH % 19.4 % (24.0-44.0); MEAN CORPUSCULAR HEMOGLOBIN 31.3 pg (27.0-33.0); MEAN CORPUSCULAR HGB CONC 34.4 g/dl (32.0-36.5); MONO # 0.6 K/mm3 (0.0-0.8); MONO % 5.9 % (0.0-5.0); NEUTROPHILS # 6.6 K/mm3 (1.8-7.7); NEUTROPHILS % 69.9 % (36.0-66.0); PLATELET COUNT, AUTOMATED 604 k/mm3 (150-450); RED CELL DISTRIBUTION WIDTH 13.5 % (11.5-14.5); WHITE BLOOD COUNT 9.4 K/mm3 (4.0-10.0)
[2017-01-18 13:00] LABS: ABG pH (ARTERIAL) 7.461 UNITS (7.350-7.450)
[2017-01-18 13:01] LABS: ABG BASE EXCESS -1.3 (-2.0-2.0); ABG HCO3 21.6 MEQ/L (22.0-26.0); ABG PARTIAL PRESSURE O2 84.3 mmHg (75.0-100.0); ABG STANDARD HCO3 23.3 MEQ/L (22.0-26.0); ABG TOTAL CO2 22.6 MEQ/L (23.0-31.0)
[2017-01-18 13:11] LABS: ALBUMIN 2.6 GM/DL (3.2-5.2); ALBUMIN/GLOBULIN RATIO 0.62 (1.00-1.93); BILIRUBIN,TOTAL 0.7 MG/DL (0.2-1.0); CALCIUM LEVEL 8.8 MG/DL (8.8-10.2); CREATININE FOR GFR 1.47 MG/DL (0.70-1.30); GLOMERULAR FILTRATION RATE 48.7 (>35); MAGNESIUM LEVEL 2.7 MG/DL (1.8-2.4); PHOSPHORUS LEVEL 3.9 MG/DL (2.5-4.9); POTASSIUM SERUM 4.5 MEQ/L (3.5-5.1); TOTAL PROTEIN 6.8 GM/DL (6.4-8.2)
--- NOTE | 2017-01-18 13:28 | REP ---
PORTABLE CHEST X-RAY: SITTING AP VIEW. HISTORY: "PEA." COMPARISON STUDY: 01/11/2017 FINDINGS: EKG monitoring electrodes overlie the chest. Prior sternotomy wires are seen. The lungs are symmetrically aerated and clear. Pleural angles are sharp. Heart is not felt to be enlarged. Pulmonary vasculature is not increased. IMPRESSION: No active disease. Signed by Lenard Saavedra MD 01/18/2017 02:39 P
[2017-01-18 16:00] VITALS: BP 130/62
[2017-01-18 20:00] VITALS: BP 147/60
--- NOTE | 2017-01-18 20:50 | ECGEPIP ---
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 PATTERN CONSISTENT WITH PULMONARY DISEASE POSSIBLE LEFT VENTRICULAR HYPERTROPHY MODERATE T-WAVE ABNORMALITY, CONSIDER LATERAL ISCHEMIA Electronically Signed On 01-18-2017 20:50:40 EDT by Maxx Patel
--- NOTE | 2017-01-18 20:58 | ECGEPIP ---
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 MODERATE INTRAVENTRICULAR CONDUCTION DELAY MODERATE T-WAVE ABNORMALITY, CONSIDER LATERAL ISCHEMIA Electronically Signed On 01-18-2017 20:57:58 EDT by Maxx Patel
[2017-01-18 23:59] VITALS: BP 112/53
[2017-01-19 04:00] VITALS: BP 100/54
[2017-01-19 05:59] LABS: MEAN CORPUSCULAR HEMOGLOBIN 31.1 pg (27.0-33.0); MEAN CORPUSCULAR HGB CONC 34.1 g/dl (32.0-36.5); MEAN CORPUSCULAR VOLUME 91.3 fl (80.0-96.0); RED CELL DISTRIBUTION WIDTH 13.7 % (11.5-14.5); WHITE BLOOD COUNT 8.1 K/mm3 (4.0-10.0)
[2017-01-19] MEDS: SLF 3 ML SYR IV SCH ×3 (06:00→20:42)
[2017-01-19 06:15] LABS: CREATININE FOR GFR 1.49 MG/DL (0.70-1.30); GLOMERULAR FILTRATION RATE 47.9 (>35); POTASSIUM SERUM 4.6 MEQ/L (3.5-5.1)
[2017-01-19 08:00] VITALS: BP 90/56
[2017-01-19] MEDS ORDERED: SODIUM CHLORIDE 0.9% 1000 ML IV ONE (08:30)
[2017-01-19] MEDS: CARVedilol 3.125 MG TAB PO SCH (09:00)
[2017-01-19] MEDS: ENTRESTO 24-26MG TABLET (SACUBITRIL/VALSARTAN) PO SCH (09:15)
[2017-01-19] MEDS: ASPIRIN 81 MG ENTERIC TAB PO SCH (09:15)
[2017-01-19] MEDS: SENOKOT S TAB PO SCH ×2 (09:15→20:41)
[2017-01-19] MEDS: APIXABAN 5 MG TAB (ELIQUIS) PO SCH (09:16)
[2017-01-19] MEDS: ATORVASTATIN 20 MG TAB PO SCH (09:16)
[2017-01-19] MEDS: LACTOBACILLUS ACIDOPHILUS CAP (BACID) PO SCH ×2 (09:16→20:41)
[2017-01-19 12:00] VITALS: BP 138/56
[2017-01-19 16:00] VITALS: BP 126/60
--- NOTE | 2017-01-19 18:13 | IPN ---
DATE: 01/19/2017 SUBJECTIVE: The patient is seen in the room multiple times today. In the morning , the patient keeps stating he is not feeling well. He does not want to get up and start eating his breakfast, and a few hours later, the patient began to feel more energetic and able to work with physical therapy. The patient is still experiencing significant fatigue and discomfort. Not able to perform much during physical therapy. Denies any chest pain or palpitations. Denies any shortness of breath. On telemetry, the patient continued to have significant first-degree AV block. OBJECTIVE: VITAL SIGNS: Temperature is 97, pulse is 60, respirations 20, blood pressure is 90/56, pulse oximetry is 95% in room air. GENERAL: Fatigued. The patient is alert and awake, oriented. No jugular venous distention (JVD). HEENT: Normocephalic, atraumatic. Extraocular motor grossly intact. CARDIOVASCULAR: Positive S1, S2, regular rate. LUNGS: Clear to auscultation bilaterally. ABDOMEN: Soft, nontender, nondistended. Bowel sounds present. No rebound, no guarding. EXTREMITIES: No edema, no sign of cyanosis. LABORATORY DATA: WBC 8.1, hemoglobin 12, hematocrit 35.4, platelet count is 517. Sodium is 139, potassium 4.6, chloride 105, carbon dioxide 27, BUN 32, creatinine 1.49, GFR is 47.9, fasting glucose 85, calcium is 9, C-reactive protein is 2.25. Troponin I is negative times two sets in the last 24 hours. ASSESSMENT AND PLAN: 1. Sepsis secondary to urinary tract infection. Urine culture grew positive for Escherichia (E) coli. The patient finished a course of antibiotics. The patient' s C-reactive protein continues to trend down. WBC is within normal range. 2. 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 Echocardiogram was performed on 01/10/2017. The patient was found to have an ejection fraction (EF) of 25%. The patient also has grade 1 diastolic congestive heart failure. Previously, the patient had sign of fluid overload, and the patient required aggressive IV diuresis. However, currently, the patient started to show some signs of dehydration. Lasix is on hold. The patient was started on a very small amount of intermittent fluid hydration. The patient is being evaluated by Dr. Patel according to the most recent progress note. Most recent note, no implantable cardioverter defibrillator (ICD) is recommended for this patient. 3. Acute kidney injury due to dehydration. The patient continues to have poor oral intake. The patient has very dry mucosa, and there is no sign of fluid overload. No jugular venous distention (JVD). The patient's clinical presentation suggests significant dehydration due to severe cardiac disease such as diastolic and systolic congestive heart failure with very poor ejection fraction (EF). Will be very cautious with regards to fluid resuscitation. The patient also started to have hypotension and today will give 0.5 mL of normal saline bolus. Continue to follow blood pressures. Continue to follow renal function. 4. History of myocardial infarction in 1999. Status post coronary artery bypass graft (CABG) in 2000. In 2014, the patient had an echocardiogram (cardiac echogram) performed and showed grade 1 diastolic heart failure. However, the echocardiogram performed on 01/10/2017 showed systolic dysfunction with EF 25% and grade [address] Patel has been consulted. Medication has been recommended and will follow with recommendations. However, the patient does have hypotension and will defer the medication adjustment to the cardiology team. 5. Dyslipidemia, on statin. 6. Deep vein thrombosis (DVT) prophylaxis. On Eliquis. MTDD
--- NOTE | 2017-01-19 18:39 | IPN ---
DATE: 01/19/2017 CARDIOLOGY PROGRESS NOTE SUBJECTIVE: The patient reports feeling "awful," but currently is not having any chest discomfort, shortness of breath. Chief complaint relates to low back pain because of lying in the hospital bed and a sense of weakness. OBJECTIVE: Thin, unshaven elderly male, lying virtually flat without dyspnea. No pallor or cyanosis. Currently orientated times three. Heart rate 70 beats per minute (BPM) and regular with frequent irregularities. Blood pressure 116/60 supine, 112/58 sitting with legs dependent, respiratory rate 18, oxygen saturation 96% on room air. Weight today 56.3 kg (124 pounds) down a kilogram from yesterday and actually down 7 kg from admission, 01/06/2017. Normal oral moisture. No central cyanosis. Trachea midline. Jugular veins currently are 2 cm above the sternal angle. Normal appearing chest configuration with well-healed sternotomy incision. Fairly good air entry over both lung martinez with no current pulmonary adventitious sounds. Apical impulse at or just lateral to the midclavicular line fifth intercostal space. S1 was soft with slight variability related to his arrhythmia. Unable to detect S2 splitting at this time. No current gallop but has an apical systolic murmur and soft, somewhat variable systolic ejection murmur right base. Unable to detect a diastolic murmur. Abdomen was somewhat scaphoid and soft. Liver was not enlarged at this time. No sacral or lower extremity pitting edema. Upper extremity and femoral pulses were normal. Pedal pulses were symmetrically decreased. patient monitor: I have reviewed all of this patient's strips while in the hospital; many of these have been misinterpreted as showing atrial fibrillation. These are in fact sinus rhythm with a marked first-degree atrioventricular (AV) block and premature atrial contractions (PACs). On his presentation, he did have a nonsustained run of ventricular tachycardia and earlier today had a four-beat run. EKGs: Last tracing 01/18/2017, again, was misinterpreted as showing atrial fibrillation. Clear-cut atrial activity was visualized on the rhythm strip as well as in V1 and V2, though the strip was interpreted, as mentioned, showing atrial fibrillation, it is not. Has an impressive first-degree AV block, leftward axis, poor precordial R-wave progression and inferolateral ST/T-wave abnormalities, which were not significantly changed from tracing taken earlier the same day. Portable upright chest x-ray: Study taken yesterday was reviewed independently and shows obvious cardiomegaly even allowing for this portable technique. Somewhat unfolded thoracic aorta with obvious sternotomy wire sutures and vascular clips, but currently he did not have pulmonary vascular congestion, interstitial edema or pleural effusions. No localized infiltrate. LABORATORY DATA: Blood work taken earlier today shows a hemoglobin of 12.0 with normal red blood cell indices. Normal white blood cell count. Slightly elevated platelet count. Sedimentation rate this admission was as high as 107. Serial blood cultures have been consistently negative. Arterial blood gas yesterday showed a pH of 7.46, pO2 of 84, pCO2 of 31. Electrolytes were in balance with potassium 4.6, BUN 32, was not dramatically changed from admission despite his 7 kg weight loss. Creatinine had been high at 1.7 on admission and is currently stable the past 3 days at 1.49. Lactic acid level yesterday was normal. Serum albumin was low at 2.6. Serial Troponin I levels have been negative the past 24 hours. BNP level yesterday was down from 917, 01/08/2017. Magnesium level was 2.7 yesterday. SGOT was slightly elevated at 61. His total bilirubin was normal. IMPRESSION/PLAN: 1. Heart failure (systolic and diastolic dysfunction/acute on chronic): Currently appears to be at his functional dry weight with no sign of pulmonary or systemic edema. I reviewed his recent echocardiogram personally, and he does have at least moderately severe impairment of global left ventricular systolic performance. His apical and distal septal wall motion abnormality may be related to his at least moderately severe pulmonary hypertension. I suspect his recent infection may well have contributed to an impairment of his global cardiac performance. Because of relative hypotension with vasodilator therapy earlier today, he was given a bolus of fluid with good effect. In light of his response and his renal insufficiency, we have replaced his Entresto and carvedilol with captopril 6.25 mg twice a day and spironolactone 12.5 mg daily. Furosemide has been placed on hold. We will continue to monitor his fluid status with you But at the time of his admission, his medication list did not include a diuretic. It is quite possible he will not require one at the time of discharge. 2. Premature atrial contractions (PACs)/nonsustained ventricular tachycardia: Ventricular and atrial arrhythmia is clearly related to his structural heart disease and acute illness. I have searched his chart carefully as well as our office EKGs and can find no evidence of atrial fibrillation or flutter. What has been interpreted as showing atrial fibrillation has been mistaken - sinus rhythm with marked first-degree AV block and PACs. In light of this, his Eliquis oral anticoagulation will be discontinued especially in light of his recent history of falling. I have discussed this with the patient and his son. 3. First-degree AV block: Very impressive first-degree AV block has been noted for at least the past year, especially with digoxin therapy. In light of this, his carvedilol has also been discontinued. He has recently signed a DO NOT RESUSCITATE (DNR) form and is being taken off telemetry. 4. Coronary artery disease ([place] vessel)/post CABG: Fortunately remains free of symptomatic myocardial ischemia. Serial EKGs do not show evolutionary repolarization abnormalities. Serial troponin I levels have never been elevated beyond that we would expect with his renal insufficiency. As mentioned above, his Entresto has been replaced with shorter acting lower dose of WOLF inhibitor captopril. Carvedilol discontinued because of his marked first-degree AV block. He has a history of falling, could not rule out intermittent high-grade AV block. Remains on low-dose aspirin and atorvastatin. 5. Hypertensive heart disease (benign with heart failure): Current blood pressure is adequately controlled. Should remain on a modest salt and fluid intake restriction. Furosemide diuretic therapy has been withheld with him having lost 7 kg since his admission. I have switched his antifailure/antihypertensive therapy as mentioned above. We will continue to monitor his chemistry and blood pressure with you. 6. Mitral and aortic valve disease: Has degenerative changes of both of these structures with at least moderate mitral and mild aortic insufficiency. Though he presented with an elevated sedimentation rate and white blood cell count and fever, no clear echocardiographic evidence of endocarditis and serial blood cultures here in hospital have been consistently negative. 7. Pulmonary hypertension: The degree of pulmonary hypertension appears somewhat out of keeping with his left ventricular disease and does predispose him to hypotension with vasodilator therapies. Serial arterial blood gases here have actually never shown hypoxemia. I suspect his pulmonary hypertension may well be a reactive phenomenon triggered by his chronically elevated pulmonary venous pressure. As mentioned above, neck veins are presently not elevated and there is no sign of systemic edema. We understand and feel it is appropriate at his age that he has made himself a DNR. We certainly respect his wish but will still plan on monitoring him briefly with you. ROCIO
[2017-01-19 19:53] VITALS: BP 139/65
[2017-01-20] VITALS (7 sets, daily range): BP systolic 113–152; BP diastolic 57–66
[2017-01-20 05:40] LABS: MEAN CORPUSCULAR HEMOGLOBIN 30.7 pg (27.0-33.0); MEAN CORPUSCULAR HGB CONC 33.9 g/dl (32.0-36.5); MEAN CORPUSCULAR VOLUME 90.6 fl (80.0-96.0); RED CELL DISTRIBUTION WIDTH 13.6 % (11.5-14.5); WHITE BLOOD COUNT 7.6 K/mm3 (4.0-10.0)
[2017-01-20 05:49] LABS: CALCIUM LEVEL 8.6 MG/DL (8.8-10.2); CREATININE FOR GFR 1.33 MG/DL (0.70-1.30); GLOMERULAR FILTRATION RATE 54.7 (>35); POTASSIUM SERUM 4.2 MEQ/L (3.5-5.1)
[2017-01-20] MEDS ORDERED: CAPTOpril 6.25 MG PER 1/2 TABLET PO SCH (06:00)
[2017-01-20] MEDS: SLF 3 ML SYR IV SCH ×3 (06:31→20:34)
[2017-01-20] MEDS: SPIRONOLACTONE 12.5MG PER 1/2 TABLET PO SCH (06:31)
[2017-01-20] MEDS: LACTOBACILLUS ACIDOPHILUS CAP (BACID) PO SCH ×2 (08:46→20:33)
[2017-01-20] MEDS: SENOKOT S TAB PO SCH ×2 (08:46→20:33)
[2017-01-20] MEDS: ATORVASTATIN 20 MG TAB PO SCH (08:46)
[2017-01-20] MEDS: ASPIRIN 81 MG ENTERIC TAB PO SCH (08:46)
[2017-01-20] MEDS: CAPTOpril 12.5 MG TAB PO SCH (18:14)
--- NOTE | 2017-01-20 18:47 | IPN ---
DATE: 01/20/2017 CARDIOLOGY PROGRESS NOTE SUBJECTIVE: The patient has been up to the bathroom with assistance earlier today and has remained free of any chest discomfort, shortness of breath or dizziness. OBJECTIVE: Thin, unshaven, elderly male currently lying flat comfortably in bed, appears somewhat depressed but is alert and oriented and in no distress. Heart rate 76 beats per minute and regular with occasional irregularity. Blood pressure 124/48 supine, respiratory rate 16 per minute, oxygen saturation 97% on room air. Weight has been stable at 56.8 kg today. No pallor or cyanosis. Normal oral moisture. Trachea midline. Neck veins remain approximately 2 cm above the sternal angle. Normal respiratory rate and chest expansion with good air entry over both lung martinez. No current pulmonary adventitious sounds. Abdomen is soft. No dependent edema. 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 LABORATORY DATA: Hemoglobin today is stable at 12.0. Normal white blood cell count. Platelet count remains mildly elevated at 525,000. Chemistry today confirmed electrolyte balance with slightly improved BUN, creatinine at 30 and 1.3, fasting glucose 89. C-reactive protein is actually decreased from a high of 18.8 on 01/11/2017 to 1.65 at this time. Blood cultures remain negative, as previously mentioned. IMPRESSION/PLAN: 1. Heart failure (systolic and diastolic/chronic): At this point, he remains at his functional dry weight with no current symptoms or signs of pulmonary or systemic edema. Note is made of his improving renal function. Diuretic therapy remains on hold. Has tolerated low-dose short-acting captopril and spironolactone without problem. I plan to increase the dosage of his captopril to 12.5 mg twice a day. We will continue to hold his diuretic at this time. I have requested increased activity with him out of bed and hopefully ambulating the kate with assistance. 2. Premature atrial contractions/nonsustained ventricular tachycardia: Off his carvedilol therapy with his current compensated state, has been virtually free of arrhythmia. As previously mentioned, in the absence of evidence of EKG documented atrial fibrillation, his Eliquis has been discontinued. 3. First-degree AV block: Continues to have an impressive first-degree AV block off his carvedilol and digoxin. A followup EKG will be obtained tomorrow. This time he appeared to have significantly less arrhythmia as mentioned. Presently, remains on telemetry. 4. CAD (bad [place] vessel)/post coronary artery bypass graft (CABG): Remains free of symptomatic myocardial ischemia on his current level of activity. Currently off of carvedilol, as mentioned, but on captopril, low-dose aspirin and atorvastatin. I am hoping to improve his ambulation in hospital. Followup EKG has been requested for the morning. 5. Hypertensive heart disease (benign with heart failure): Current blood pressure appears fine with his present dose of carvedilol and off furosemide diuretic therapy. Chemistry shows electrolyte balance with a combination of captopril and spironolactone. BUN, creatinine actually improving, as mentioned. 6. 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 Serial blood cultures have been negative. Presently off antibiotic therapy. 7. Pulmonary hypertension: Believed to be a reflection of chronically elevated mean left atrial pressure with perhaps a reactive elevation superimposed as his pulmonary arterial pressures are actually higher than we would have anticipated. Currently compensated as mentioned without signs of right heart failure. We will continue to monitor him with you while he is in hospital, gradually being ambulated. I intend to continue to monitor his rhythms and adjust his vasodilator therapy. Would refrain from reintroducing diuretic therapy at this time. Thank you, Carlos Lopez MD
--- NOTE | 2017-01-20 19:44 | IPN ---
DATE: 01/20/2017 SUBJECTIVE: The patient is seen and examined in the room today. The patient stated he is not feeling great. Denies any other new symptoms. The patient continues to have poor oral intake. No overnight events reported. OBJECTIVE: VITAL SIGNS: Temperature is 97.7, pulse 80, respiratory rate 18, blood pressure 152/66, pulse oximetry 100% on room air. GENERAL: Fatigued. No sign of acute distress, alert and oriented times three. HEENT: Normocephalic, atraumatic. Extraocular motor grossly intact. CARDIOVASCULAR: Positive S1, S2. Regular rate. LUNGS: Clear to auscultation bilaterally. ABDOMEN: Soft, nontender, nondistended. Bowel sounds present. No rebound, no guarding. EXTREMITIES: No edema, no sign of cyanosis. LABORATORY DATA: WBC is 7.6, hemoglobin 12, hematocrit 35.5, platelet count 525. Sodium 139, potassium 4.2, chloride 107, carbon dioxide 26, BUN 30, creatinine 1.33, GFR 54.7, fasting glucose 89, calcium 8.6. C-reactive protein 1.65. ASSESSMENT AND PLAN: 1. Sepsis secondary to urinary tract infection. Culture grew positive for Escherichia (E.) coli. The patient finished a course of antibiotics. C-reactive protein continues to trend down. White blood cell count (WBC) within normal range. Patient's vitals are within satisfactory range. 2. 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 Echocardiogram was performed and showed the patient has an ejection fraction of 25%. The patient also has a grade 1 diastolic congestive heart failure. Due to significant dehydration, diuretic has been on hold. Cardiology has been assisting on the case. We appreciate Dr. Lopez' recommendations. 3. Acute kidney injury secondary to dehydration. The patient continues to have poor oral intake. The patient has been receiving intermittent fluid hydration. Renal function is improving. 4. History of myocardial infarction in 1999, status post coronary artery bypass graft (CABG) in 2000. The patient is on aspirin. The patient is also on Lipitor. Patient is currently on captopril. 5. Pulmonary hypertension. Currently, no sign of heart failure at this moment. 6. Deep venous thrombosis (DVT) prophylaxis with thromboembolism deterrent stockings (TEDs) and sequential compression devices. 7. Dyslipidemia, on statin. MTDD
[2017-01-21] VITALS (7 sets, daily range): BP systolic 100–153; BP diastolic 54–67
[2017-01-21 05:25] LABS: MEAN CORPUSCULAR HEMOGLOBIN 30.8 pg (27.0-33.0); MEAN CORPUSCULAR HGB CONC 33.8 g/dl (32.0-36.5); MEAN CORPUSCULAR VOLUME 91.2 fl (80.0-96.0); RED CELL DISTRIBUTION WIDTH 13.8 % (11.5-14.5); WHITE BLOOD COUNT 8.4 K/mm3 (4.0-10.0)
[2017-01-21 05:41] LABS: ANION GAP 9 MEQ/L (8-16); BLOOD UREA NITROGEN 26 MG/DL (7-18); CALCIUM LEVEL 8.3 MG/DL (8.8-10.2); CARBON DIOXIDE LEVEL 24 MEQ/L (21-32); CHLORIDE LEVEL 108 MEQ/L (98-107); CREATININE FOR GFR 1.17 MG/DL (0.70-1.30); GLOMERULAR FILTRATION RATE > 60.0 (>35); GLUCOSE, FASTING 88 MG/DL (83-110); POTASSIUM SERUM 4.6 MEQ/L (3.5-5.1); SODIUM LEVEL 141 MEQ/L (136-145)
[2017-01-21] MEDS: SPIRONOLACTONE 12.5MG PER 1/2 TABLET PO SCH (06:40)
[2017-01-21] MEDS: CAPTOpril 12.5 MG TAB PO SCH ×2 (06:41→19:38)
[2017-01-21] MEDS: SLF 3 ML SYR IV SCH ×3 (06:43→21:27)
[2017-01-21] MEDS: ASPIRIN 81 MG ENTERIC TAB PO SCH (08:44)
[2017-01-21] MEDS: ATORVASTATIN 20 MG TAB PO SCH (08:44)
[2017-01-21] MEDS: LACTOBACILLUS ACIDOPHILUS CAP (BACID) PO SCH ×2 (08:45→21:26)
[2017-01-21] MEDS: SENOKOT S TAB PO SCH ×2 (08:45→21:26)
--- NOTE | 2017-01-21 13:40 | ECGEPIP ---
Stationary ECG Study [facility] Test Date: 2017-01-21 Pat Name: MIMI DEMPSEY Department: Room: [place] [address] Gender: M Emergency Doctor: : [id number] Requested By: Carlos Lopez Order Number: [id number] Reading MD: Carlos Lopez Measurements Intervals Melvin Rate: 68 P: -66 IN: 304 QRS: -39 QRSD: 117 T: 123 QT: 416 QTc: 445 Interpretive Statements Normal sinus rhythm with frequent isolated PACs. LA conduction disturbance. Marked first-degree AV block. Left axis deviation with prominent voltage in aVL and strain pattern in keeping with LVH. Slow precordial R-wave progression - related to Left ventricular hypertrophy versus pulmonary disease/body habitus. Previous EKG interpretations 01/18/17 are incorrect; these did not show atrial fibrillation. Electronically Signed On 01-21-2017 13:40:13 EDT by Carlos Lopez
--- NOTE | 2017-01-21 14:59 | IPN ---
DATE: 01/21/2017 SUBJECTIVE: The patient is seen and examined in the room today. The patient denies any acute complaint or acute changes. He is still having poor oral intake. He is still complaining of generalized discomfort especially in the morning. OBJECTIVE: VITAL SIGNS: Temperature 98.6 degrees Fahrenheit, respiration 18 blood pressure 114/59, pulse ox 97% in room air. GENERAL: No sign of acute distress. Oriented times three. HEENT Normocephalic, atraumatic. Extraocular muscles grossly intact. CARDIOVASCULAR: Positive S1, S2, regular rate. LUNGS: Clear to auscultation bilaterally. ABDOMEN: Soft, nontender, nondistended. Bowel sounds present. No rebound. EXTREMITIES: No edema. No sign of cyanosis. LABORATORY DATA: WBC 8.4, hemoglobin 11.1, hematocrit 33, platelet count 477. Sodium 141, potassium 4.6, chloride 108, carbon dioxide 24, BUN 26, creatinine 1.17. GFR greater than 60, fasting glucose 88, calcium 8.3. ASSESSMENT/PLAN: 1. Sepsis secondary to urinary tract infection. Urine culture grew E coli. Patient is on a course of antibiotics. The patient has been off antibiotics for many days but does not have any recurrence of elevated white count. Vitals in the satisfactory range. 2. Systolic and diastolic congestive heart failure exacerbations: The patient's most recent cardiac echogram showed ejection fraction (EF) 25%. Previously, the patient has been aggressively diureses for the fluid overload. Then later patient was over diuresed and diuretic has been on hold and the patient is given intermittent fluid bolus. Currently, the patient had GFR rechecked in normal range. Clinically, the patient does not have any sign of fluid overload. There is no lower lobe crackles in the lungs. No lower extremity edemas. Dr. Lopez has also been assisting on the case. 3. Acute kidney injury secondary to dehydration: Resolved. 4. History of myocardial infarction in 1999. Status post coronary artery bypass graft (CABG) in 2000. The patient is on aspirin and Lipitor. Currently on captopril. 5. Pulmonary hypertension: No sign of failure at this moment. 6. Dyslipidemia on statin. 7. History of paroxysmal atrial fibrillation. 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 Lopez. 8. Deep venous thrombosis prophylaxis (DVT), now on thromboembolic deterrent stockings (TEDS), sequential compression device.
[2017-01-22 04:00] VITALS: BP 108/73
[2017-01-22 06:21] LABS: CALCIUM LEVEL 8.5 MG/DL (8.8-10.2); CREATININE FOR GFR 1.24 MG/DL (0.70-1.30); GLOMERULAR FILTRATION RATE 59.3 (>35); POTASSIUM SERUM 4.5 MEQ/L (3.5-5.1)
[2017-01-22] MEDS: SLF 3 ML SYR IV SCH ×3 (06:35→21:33)
[2017-01-22] MEDS: CAPTOpril 12.5 MG TAB PO SCH ×2 (06:36→18:05)
[2017-01-22] MEDS: SPIRONOLACTONE 12.5MG PER 1/2 TABLET PO SCH (06:37)
[2017-01-22 07:13] LABS: MAGNESIUM LEVEL 2.6 MG/DL (1.8-2.4)
[2017-01-22 08:00] VITALS: BP 118/66
[2017-01-22] MEDS: LACTOBACILLUS ACIDOPHILUS CAP (BACID) PO SCH ×2 (09:08→20:44)
[2017-01-22] MEDS: SENOKOT S TAB PO SCH ×2 (09:08→20:44)
[2017-01-22] MEDS: ATORVASTATIN 20 MG TAB PO SCH (09:08)
[2017-01-22] MEDS: ASPIRIN 81 MG ENTERIC TAB PO SCH (09:08)
--- NOTE | 2017-01-22 11:38 | IPN ---
CARDIOLOGY PROGRESS NOTE DATE: 01/22/2017 SUBJECTIVE: Complaining of only left ear aching. Has been up out of bed around his room without chest discomfort, shortness of breath or dizziness. For the most part, though has been lying in bed despite request for physical therapy. OBJECTIVE: Somewhat cantankerous thin, unshaven elderly male lying flat without distress. Heart rate 56 beats per minute and regular. Blood pressure 114/48 supine, 112/44 sitting with legs dependent. Respiratory rate 18 per minute, O2 saturation 97% on room air. Afebrile. His weight today is stable at 125 pounds off diuretic therapy. No pallor or cyanosis. Normal oral moisture. Trachea midline. Neck veins remain 1-2 cm above the sternal angle. Normal chest configuration with well-healed sternotomy incision. Good air entry over both lung martinez with no current pulmonary adventitious sounds that were abnormal. Heart sounds unchanged. Soft abdomen. No sacral or lower leg swelling. 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 There was one nonsustained run of ventricular tachycardia earlier today that was asymptomatic. LABORATORY DATA: Hemoglobin today down to 11.1 from admission level of 13.1. I have discussed this drop with his primary care provider here. Remains with normal white blood cell count. Platelet count has gradually decreased to 477 at this time. Electrolytes are normal. BUN has dropped from a high of 33 01/10/2017 to a low today of 24. His creatinine has dropped from a high of 1.7 on admission to 1.2 today. Glucose was normal at 80. Magnesium level was 2.6 in fact down from 01/18/2017. IMPRESSION/PLAN: 1. Heart failure (systolic and diastolic/chronic): Continues to be at his functional dry weight off diuretic therapy. Renal function has been gradually improving with his current combination captopril and low-dose spironolactone. Frustratingly, he does not appear to be eating or ambulating very well, which in and of themselves, is a poor prognostic sign. Apparently failed his home safety evaluation. 2. Premature atrial contractions/nonsustained ventricular tachycardia: Has remained free of symptomatic arrhythmia. Note is made of his nonsustained VT today. Has remained free of any evidence of atrial fibrillation and as discussed with his primary physician, I reviewed the EKG August 2015. At the time his Eliquis was started and this was not atrial fibrillation but a junctional tachycardia that was perfectly regular. Again no indication for Eliquis. 3. First-degree AV block: Off negative chronotropic therapy. Has been free of symptomatic bradyarrhythmia. Continues to have impressive first-degree AV block that is stable on his followup EKG performed earlier today. 4. Coronary artery disease (CAD) ([place] vessel)/post coronary artery bypass graft (CABG): On his current level of activity, has been free of symptomatic myocardial ischemia. EKG does not show any repolarization changes. Remains on protective low-dose captopril, aspirin and atorvastatin. 5. Hypertensive heart disease (benign with heart failure): Current blood pressure well controlled on captopril and low-dose spironolactone. Renal function improving as mentioned above. I would refrain from infusing furosemide. 6. Mitral aortic valve disorder (automatic): Exculpatory findings unchanged. Remains free of symptom or sign of endocarditis. 7. Pulmonary hypertension/cor pulmonale: At this point, I believe this process may well be his most serious threat from a cardiovascular standpoint. Pulmonary arterial pressures of 70 mmHg are associated with a guarded prognosis measured in perhaps a month rather than years. At this point I do not believe it is necessary to continue with EKG monitoring. Hopefully, his appetite improves and he response to physical therapy. As discussed with his primary physician, the fact that he is elected to be DO NOT RESUSCITATE eliminates his candidacy for implantable cardioverter defibrillator (ICD) implant or a life vest. We will sign off his in hospital monitoring at this time but would be pleased to reassess him at any time.
[2017-01-22 12:00] VITALS: BP 128/52
[2017-01-22 15:27] VITALS: BP 108/60
[2017-01-22 20:00] VITALS: BP 148/69
--- NOTE | 2017-01-22 23:02 | IPN ---
DATE: 01/22/2017 SUBJECTIVE: Patient is seen and examined in the room today. Patient continues to state that he is not feeling well with regard to his physical condition and home environment. No overnight events are reported. OBJECTIVE: VITAL SIGNS: Temperature is 97.6, pulse is 68, respiratory rate 18, blood pressure 118/66, pulse oximetry 97% in room air. GENERAL: No sign of acute distress, alert and oriented times three. HEENT: Normocephalic, atraumatic. Extraocular motors grossly intact. CARDIOVASCULAR: Positive S1, S2, regular rate. LUNGS: Clear to auscultation bilaterally. ABDOMEN: Soft, nontender, nondistended. Bowel sounds present. No rebound, no guarding. EXTREMITIES: No edema. No sign of cyanosis. LABORATORY DATA: WBC 8.4, hemoglobin 11.1, hematocrit 33, platelet count 477. Sodium 141, potassium 4.5, chloride 109, carbon dioxide 25, BUN 24, creatinine 1.24, GFR 50.3, fasting glucose 80, calcium 8.5, magnesium 2.6. ASSESSMENT AND PLAN: 1. Sepsis secondary to urinary tract infection. Patient's urine culture grew Escherichia (E) coli. Patient finished a course of antibiotics. C-reactive protein continues to improve. 2. 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 Most recent echocardiogram shows patient has an ejection fraction (EF) of 25%. Previously, patient received IV fluid resuscitation for patient's sepsis. Later, patient started to have fluid overload symptoms and patient has been receiving a diuretic. Currently, patient's fluid status remains in the stable range and no sign of fluid overload. However, patient continues to have very poor oral intake. Patient requires intermittent 0.5 liters of saline bolus to manage patient's acute kidney injury (ARSLAN). Dr. Lopez has been assisting on the case. Due to patient's significant cardiac history, he does not recommend Lasix diuresis as a long-term treatment. 3. Acute kidney injury secondary to dehydration. Patient is being watched closely for his renal function and for the past few days, due to poor oral intake, patient has required intermittent IV fluid bolus. Continue to monitor the patient's fluid status. 4. History of myocardial infarction in 1999 status post coronary artery bypass graft (CABG) in 2000. On aspirin and Lipitor and currently on captopril. 5. Severe pulmonary hypertension that makes patient's overall prognosis very poor. On the echocardiogram, patient was found to have pulmonary artery pressure of [address] Lopez' opinion, patient may have several months, rather than years, of life expectancy. 6. First-degree atrioventricular (AV) block. Avoid chronotropic therapy. 7. Dyslipidemia, on statin. 8. Deep venous thrombosis (DVT) prophylaxis. Thromboembolism deterrents (TEDs) and sequential compression device. DISPOSITION: Patient does have severe pulmonary hypertension along with systolic and diastolic congestive heart failure. Patient has a very guarded prognosis. Patient's medication has been adjusted. Patient is waiting for a physical therapy evaluation to determine placement options.
[2017-01-22 23:53] VITALS: BP 157/65
[2017-01-23 03:57] VITALS: BP 160/70
[2017-01-23 05:22] LABS: MEAN CORPUSCULAR HEMOGLOBIN 31.1 pg (27.0-33.0); MEAN CORPUSCULAR HGB CONC 34.2 g/dl (32.0-36.5); MEAN CORPUSCULAR VOLUME 90.9 fl (80.0-96.0); RED CELL DISTRIBUTION WIDTH 13.9 % (11.5-14.5); WHITE BLOOD COUNT 7.4 K/mm3 (4.0-10.0)
[2017-01-23] MEDS: SPIRONOLACTONE 12.5MG PER 1/2 TABLET PO SCH (05:32)
[2017-01-23] MEDS: SLF 3 ML SYR IV SCH ×3 (05:33→21:47)
[2017-01-23] MEDS: CAPTOpril 12.5 MG TAB PO SCH ×2 (05:33→18:31)
[2017-01-23 05:39] LABS: ANION GAP 8 MEQ/L (8-16); BLOOD UREA NITROGEN 23 MG/DL (7-18); CALCIUM LEVEL 8.7 MG/DL (8.8-10.2); CARBON DIOXIDE LEVEL 23 MEQ/L (21-32); CHLORIDE LEVEL 109 MEQ/L (98-107); CREATININE FOR GFR 1.09 MG/DL (0.70-1.30); GLOMERULAR FILTRATION RATE > 60.0 (>35); GLUCOSE, FASTING 79 MG/DL (83-110); POTASSIUM SERUM 4.8 MEQ/L (3.5-5.1); SODIUM LEVEL 140 MEQ/L (136-145)
[2017-01-23 08:00] VITALS: BP 133/60
[2017-01-23] MEDS: SENOKOT S TAB PO SCH ×2 (09:00→21:46)
[2017-01-23] MEDS: ASPIRIN 81 MG ENTERIC TAB PO SCH (09:00)
[2017-01-23] MEDS: LACTOBACILLUS ACIDOPHILUS CAP (BACID) PO SCH ×2 (09:00→21:46)
[2017-01-23] MEDS: ATORVASTATIN 20 MG TAB PO SCH (09:00)
[2017-01-23 14:05] VITALS: BP 138/59
--- NOTE | 2017-01-23 14:37 | IPN ---
DATE: 01/23/2017 Patient is seen and examined at the bedside. Chart has been reviewed. Patient appears to be irritable at the bedside, moaning, but he denies any shortness of breath unchanged from yesterday. He has chronic shortness of breath, but not worse today. He denies any chest pain, pressure or tightness, lightheadedness or dizziness. No active issues per nursing overnight. Urine output has diminished , about 850. Current weight is stable at 56.8, unchanged from yesterday and two days before. VITAL SIGNS: Temperature 97.9, pulse 93, respiratory rate 18, blood pressure 133/60, 96% on room air. GENERAL: Patient is awake, alert and oriented to person, place and time. He is answering questions appropriate. No use of respiratory accessory muscles. He is able to finish his sentences with no respiratory distress. HEENT: No tracheal deviation or cyanosis. Anicteric sclera, no jaundice. LUNGS: Clear to auscultation bilaterally. HEART: S1 and S2, sinus rhythm. No rubs or gallops. Patient has an apical mid systolic murmur radiating to the axilla. ABDOMEN: Soft, nontender, nondistended. Positive bowel sounds. EXTREMITIES: No pitting edema. LABORATORY DATA: White count 7.4, hemoglobin 11, hematocrit 33, platelet count of 426. Sodium 140, potassium 4.8, chloride 109, bicarb 23, BUN 23, creatinine 1.09, glucose of 79, magnesium of 2.6, repeat urine culture on 01/09 shows no growth. Chest x-ray on 01/18 shows no active disease. Echocardiogram read by Dr. Maxx Patel on 01/10/2017 ejection fraction of 25% with left ventricular apical akinesis, inferior basal segment also akinetic, severe reduction in overall left ventricular systolic function, grade 1 left ventricular diastolic dysfunction, moderate left atrial dilation, right ventricular systolic pressure of 69 mmHg. Mild aortic regurgitation. 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 Microbiology grew out E. coli resistant to ampicillin, zobactam and cefazolin. He was given intravenous fluids, and treated with Cipro in the emergency room and meropenem on the medical/surgical floor every 8 hours. He had acute kidney injury on admission due to severe sepsis with improvement over time with fluid hydration. He then developed fluid overload, was found on echo to have ejection fraction of 25% at which point cinder crusher operator Dr. Lopez was consulted for fluid and heart failure management. The patient was found to have a significant telemetry findings including nonsustained V-tach, first degree AV block, and junctional rhythm. Patient had nonsustained V-tach. The EKG showed misinterpreted as atrial fibrillation was actually junctional rhythm with impressive first degree AV block, left axis and poor precordial R wave progression with inferior STT changes. Patient was treated for congestive heart failure (CHF), but did not tolerate IV Lasix, was placed on captopril and spironolactone. Lasix was held due to relative hypotension on vasodilator therapy requiring a bolus of IV fluid with good response. He had episodes of nonsustained V-tach and premature atrial complexes and his Eliquis has been discontinued so there are no clear signs of atrial fibrillation as discussed by Dr. Lopez with his primary care physician. Coreg was discontinued due to first degree AV block as high grade AV block could not be ruled out. The patient was kept on aspirin and atorvastatin. Current active issues are as follows: 1. Urinary tract infection/sepsis, resolved. E. coli resistant to ampicillin and zobactam. Initially treated with Cipro with sensitivity to Levaquin as well as meropenem. 2. Acute kidney injury due to sepsis secondary to urinary tract infection, resolved. 3. Congestive heart failure (CHF), systolic, severe systolic dysfunction, ejection fraction of 25% with severe left ventricular anterior wall akinesis and inferior wall akinesis. Patient is currently DO NOT RESUSCITATE. He has had episodes of nonsustained V-tach on the monitor, currently not on beta blockers due to severe hypotension and vasodilation. Per Dr. Lopez, patient is managed on captopril and spironolactone for diuresis and continued on aspirin 81 mg daily and Lipitor 20 mg daily. Patient has had positive balance for the past five days, but has had no objective complaints of shortness of breath or findings of heart failure on x-ray. He is not a defibrillator candidate for his ejection fraction of 25% and nonsustained V-tach due to DO NOT RESUSCITATE status. 4. Acute kidney injury resolved. Avoid nephrotoxins. Renally dose all medications. 5. Anemia of chronic disease. No acute indication for red blood cell transfusion. Keep hemoglobin above 10 due to severe systolic dysfunction, ejection fraction of 25%. 6. History of coronary artery disease, myocardial infarction and coronary artery bypass grafting (CABG) on aspirin, Lipitor and captopril. No beta blockade due to severe hypotension and impressive first degree AV block, severe pulmonary hypertension, PA pressure was 70 mmHg. Patient may have several months rather than years of life expectancy per Dr. Lopez's opinion. He is currently DO NOT INTUBATE. 7. First degree AV block. Avoid chronotropic therapy. No beta-blockers or calcium channel blockers which could worsen this patient's bradycardia. 8. Dyslipidemia on statin, Lipitor 20 mg daily. 9. Deep vein thrombosis (DVT) prophylaxis and thromboembolism. Thromboembolic deterrent stockings (TEDS) and sequential compression devices (SCD). DISPOSITION: The patient has extremely guarded prognosis in light of severe pulmonary hypertension with a PA pressure of [address] Lopez's opinion, his cinder crusher operator, he has several months to live rather than years of life expectancy. Patient has severe systolic and diastolic congestive heart failure (CHF) with episodes of nonsustained V-tach and probable high grade AV block, ejection fraction of 25%. He is at high risk for sudden with V-tach and ventricular fibrillation and due to DNR, DO NOT INTUBATE status he is not a candidate for a defibrillator vest or automatic implantable cardioverter-defibrillator (AICD). Currently awaiting physical therapy clearance prior to discharge home. His is also admitted to the hospital for hypertensive urgency and right shoulder nondisplaced injury. [facility]
--- NOTE | 2017-01-23 21:29 | ECGEPIP ---
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
[2017-01-23 22:00] VITALS: BP 130/52
[2017-01-24] MEDS: CAPTOpril 12.5 MG TAB PO SCH ×2 (05:52→18:13)
[2017-01-24] MEDS: SPIRONOLACTONE 12.5MG PER 1/2 TABLET PO SCH (05:52)
[2017-01-24] MEDS: SLF 3 ML SYR IV SCH (05:52)
[2017-01-24 06:00] VITALS: BP 122/54
[2017-01-24] MEDS: ASPIRIN 81 MG ENTERIC TAB PO SCH (09:39)
[2017-01-24] MEDS: LACTOBACILLUS ACIDOPHILUS CAP (BACID) PO SCH ×2 (09:39→22:09)
[2017-01-24] MEDS: SENOKOT S TAB PO SCH ×2 (09:39→22:09)
[2017-01-24] MEDS: ATORVASTATIN 20 MG TAB PO SCH (09:39)
--- NOTE | 2017-01-24 14:35 | IPN ---
DATE: 01/24/2017 Patient is seen and examined at the bedside. Chart has been reviewed. This morning, the patient complains of fatigue. No shortness of breath or chest pain. No nausea, vomiting, diaphoresis. No dizziness, lightheadedness, near syncopal episode. No issues per nursing overnight. The patient has had continued decrease in appetite. No diarrhea. Afebrile. No chills, dysuria, urgency or frequency. VITAL SIGNS: Temperature 98.2, pulse 59, respiratory rate 18, blood pressure 130/52, 99% on room air. GENERAL: Patient is awake, alert and oriented times three. No pallor, icterus or jaundice. No jugular venous distention (JVD). No cyanosis. Moist mucous membranes. Well healed sternotomy incision. Air entry is equal. LUNGS: Diminished but no wheezing, rales or rhonchi. HEART: S1 and S2. Irregularly irregular. ABDOMEN: Soft, nontender, nondistended. Positive bowel sounds. EXTREMITIES: No pitting edema. Laboratory data has been reviewed. Imaging studies reviewed. ASSESSMENT/PLAN: 1. Heart failure, systolic and diastolic, currently at his dry weight on captopril and low dose spironolactone. The patient's renal function has improved significantly. The patient is still awaiting cardiac rehabilitation and physical therapy (PT) clearance prior to discharge home. 2. Premature atrial contractions, nonsustained ventricular tachycardia. The patient had junctional tachycardia per Dr. oLpez on EKG in August, no indication for Eliquis according to his dynamic balancer set up worker. 3. 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 The patient is kept on captopril, aspirin, atorvastatin. 4. Hypertensive heart disease. On Captopril and spironolactone. Per Dr. Lopez, refrain from using Lasix. 5. Cor pulmonale and pulmonary hypertension with 70 mmHg PA pressure. Remains with guarded prognosis and most likely limiting his life expectancy as the patient is DO NOT RESUSCITATE and therefore not a candidate for AICD or life vest. Cardiology has signed off. 6. Urinary tract infection (UTI) and sepsis, resolved. 7. Escherichia (E) coli , resistant to ampicillin and sulbactam. The patient was treated with Cipro. Sensitive to Levaquin, as well as meropenem. 8. Acute kidney injury secondary to sepsis and urinary tract infection, which is resolved. 9. Anemia of chronic disease. No acute indication for red blood cell transfusion. 10. Dyslipidemia. On statins and Lipitor. 11. Deep vein thrombosis (DVT) prophylaxis. Currently on IMELDA stockings. DISPOSITION: The patient has a guarded prognosis in light of severe pulmonary hypertension with PA pressure of 70 mmHg. According to his dynamic balancer set up worker, Dr. Lopez, review of his EKG shows junctional tachycardia and not atrial fibrillation, therefore no indication for anticoagulation with Eliquis. The patient has had episodes of nonsustained ventricular tachycardia with ejection fraction of 25% and is high risk of sudden with ventricular tachycardia and ventricular fibrillation and due to DO NOT RESUSCITATE/DO NOT INTUBATE status he is not a candidate for defibrillator vest or automatic implantable cardioverter defibrillator. Currently will be changed to alternate level of care (ALC)/half-way facility (SNF) status awaiting clearance for discharge home or placement. The patient's is also admitted to the hospital. Both of them will need placement. ROCIO
[2017-01-24 15:55] VITALS: BP 124/83
--- NOTE | 2017-01-24 18:32 | ECGEPIP ---
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
[2017-01-24 22:00] VITALS: BP 119/58
[2017-01-25 06:00] VITALS: BP 147/65
[2017-01-25] MEDS: CAPTOpril 12.5 MG TAB PO SCH ×2 (06:08→17:36)
[2017-01-25] MEDS: SPIRONOLACTONE 12.5MG PER 1/2 TABLET PO SCH (06:08)
[2017-01-25] MEDS: LACTOBACILLUS ACIDOPHILUS CAP (BACID) PO SCH ×2 (09:27→21:32)
[2017-01-25] MEDS: SENOKOT S TAB PO SCH ×2 (09:27→21:32)
[2017-01-25] MEDS: ASPIRIN 81 MG ENTERIC TAB PO SCH (09:27)
[2017-01-25] MEDS: ATORVASTATIN 20 MG TAB PO SCH (09:27)
[2017-01-25 14:00] VITALS: BP 125/83
[2017-01-25] MEDS ORDERED: MOM 30ML SUSPENSION UDC PO PRN (15:15)
[2017-01-25 22:00] VITALS: BP 143/60
[2017-01-26 06:00] VITALS: BP 108/54
[2017-01-26] MEDS: CAPTOpril 12.5 MG TAB PO SCH ×2 (06:50→18:29)
[2017-01-26] MEDS: SPIRONOLACTONE 12.5MG PER 1/2 TABLET PO SCH (06:50)
[2017-01-26] MEDS: ASPIRIN 81 MG ENTERIC TAB PO SCH (09:35)
[2017-01-26] MEDS: LACTOBACILLUS ACIDOPHILUS CAP (BACID) PO SCH ×2 (09:35→22:30)
[2017-01-26] MEDS: ATORVASTATIN 20 MG TAB PO SCH (09:35)
[2017-01-26] MEDS: SENOKOT S TAB PO SCH ×2 (09:35→22:30)
[2017-01-26 14:00] VITALS: BP 113/56
[2017-01-26 22:00] VITALS: BP 146/60
[2017-01-27] MEDS: SPIRONOLACTONE 12.5MG PER 1/2 TABLET PO SCH (05:43)
[2017-01-27] MEDS: CAPTOpril 12.5 MG TAB PO SCH ×2 (05:43→17:17)
[2017-01-27 06:00] VITALS: BP 167/82
[2017-01-27] MEDS: ASPIRIN 81 MG ENTERIC TAB PO SCH (09:03)
[2017-01-27] MEDS: SENOKOT S TAB PO SCH ×2 (09:03→21:56)
[2017-01-27] MEDS: ATORVASTATIN 20 MG TAB PO SCH (09:03)
[2017-01-27] MEDS: LACTOBACILLUS ACIDOPHILUS CAP (BACID) PO SCH ×2 (09:03→21:56)
[2017-01-27 14:00] VITALS: BP 119/85
[2017-01-27 22:00] VITALS: BP 108/56
[2017-01-28 06:00] VITALS: BP 146/65
[2017-01-28] MEDS: SPIRONOLACTONE 12.5MG PER 1/2 TABLET PO SCH (06:30)
[2017-01-28] MEDS: CAPTOpril 12.5 MG TAB PO SCH ×2 (06:31→17:27)
[2017-01-28] MEDS: SENOKOT S TAB PO SCH ×2 (10:26→22:35)
[2017-01-28] MEDS: ATORVASTATIN 20 MG TAB PO SCH (10:26)
[2017-01-28] MEDS: LACTOBACILLUS ACIDOPHILUS CAP (BACID) PO SCH ×2 (10:26→22:36)
[2017-01-28] MEDS: ASPIRIN 81 MG ENTERIC TAB PO SCH (10:26)
[2017-01-28 14:00] VITALS: BP 128/60
[2017-01-28 20:50] VITALS: BP 130/60
[2017-01-29 05:59] VITALS: BP 99/58
[2017-01-29 06:00] VITALS: BP 99/48
[2017-01-29] MEDS: CAPTOpril 12.5 MG TAB PO SCH (06:00)
[2017-01-29] MEDS: SPIRONOLACTONE 12.5MG PER 1/2 TABLET PO SCH (06:00)
[2017-01-29] MEDS: LACTOBACILLUS ACIDOPHILUS CAP (BACID) PO SCH (10:21)
[2017-01-29] MEDS: ATORVASTATIN 20 MG TAB PO SCH (10:22)
[2017-01-29] MEDS: ASPIRIN 81 MG ENTERIC TAB PO SCH (10:22)
[2017-01-29] MEDS: SENOKOT S TAB PO SCH (10:22)
[2017-01-29] MEDS ORDERED: CAPT125TA PO ×2 (11:34→11:36)
[2017-01-29] MEDS ORDERED: MILKSUS PO (11:34)
[2017-01-29] MEDS ORDERED: SPIR25TA2 PO ×2 (11:34→11:36)
[2017-01-29] MEDS ORDERED: SENN1TAB2 PO ×2 (11:34→11:36)
[2017-01-29] MEDS ORDERED: RISATAB3 PO ×2 (11:34→11:36)
--- NOTE | 2017-02-08 13:57 | DSES ---
DATE OF ADMISSION: 01/06/2017 DATE OF DISCHARGE: 01/29/2017 The patient was changed to alternate level of care (ALC) half-way facility (SNF) status 01/24/2017. The patient was transferred to [facility] on 01/29/2017. PRIMARY CARE PHYSICIAN: Capo Willard MD TOOL CRIB LEAD: Carlos Lopez MD PRIMARY DISCHARGE DIAGNOSES: 1. Acute decompensated congestive heart failure, systolic and diastolic dysfunction. 2. Nonsustained ventricular tachycardia (V-TACH) and premature atrial contractions. 3. History of coronary artery disease (CAD) and coronary artery bypass graft (CABG) with first-degree AV block. 4. Cor. Pulmonale, pulmonary hypertension with 70 mmHg PA pressure. 5. Hypertensive heart disease. 6. Urinary tract infection with Escherichia (E.) coli/sepsis secondary to urinary tract infection (UTI), present on admission. 7. Acute kidney injury secondary to sepsis and urinary tract infection. 8. Anemia of chronic disease. 9. Dyslipidemia. 10. Moderate mitral regurgitation. CODE STATUS: DO NOT RESUSCITATE. DO NOT INTUBATE. DISCHARGE MEDICATIONS: - captopril 12.5 mg twice a day - Diya-Bid probiotic one tablet by mouth twice a day - Senokot Plus one tablet by mouth twice a day - spironolactone 12.5 mg daily - aspirin 81 mg daily - atorvastatin 20 mg daily - Eliquis 5 mg twice a day - digoxin 0.125 mg daily DISCHARGE INSTRUCTIONS: The patient is DO NOT RESUSCITATE, DO NOT INTUBATE. 2-liter fluid restriction. Strict intake and output (I and O). Daily weight. Follow with etl bi developer for more than 2-pound weight gain. CONSULTATIONS DURING THIS ADMISSION: Statistical Engineer, Dr. Carlos Lopez. 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 Lives at home with his . He fell out of bed; unsure why he fell. The patient was awake when his had found him with no loss of consciousness or head trauma. They called their son, who helped the father into bed. He had no complaints prior to the episode. In the emergency room (ER), he was found to have abnormal urinalysis and febrile. Hospitalist admitted for UTI with E. coli present on admission and acute kidney injury. Creatinine of 1.74 with baseline of around 1.2 creatinine. Urinalysis (UA) was notable for 3+ leukocyte esterase, too numerous to count white blood cells (WBCs), 2+ bacteria. He was started on Cipro due to his history of PENICILLIN allergy and had a slightly elevated troponin, minimally in the setting of acute renal failure with no symptoms or cardiac dysfunction. Evaluation for the fall included thoracic, pelvic, and lumbar x-rays, which showed degenerative spondylosis, no fracture, collapse, or other bony abnormalities seen with prior sternotomy. Chest x-ray 01/06/[address] abdomen and pelvis showed mild pneumobilia, extensive vascular calcification, moderate stool in rectum and rectosigmoid area, left colonic diverticulosis, no acute abnormality, 1.8 cm cyst in the left kidney. Carotid Dopplers showed 16% to 49% narrowing in the left ICA, no significant change, 50% to 79% narrowing in the right ICA slightly higher than on the 2015 study. Echocardiogram on 01/10/2017 performed due to fluid overload and congestive heart failure showing ejection fraction 25% with grade 1 diastolic dysfunction, left ventricle apex was akinetic, and inferior basal segment was akinetic with global hypokinesis, moderate left atrial dilatation, moderate mitral regurgitation. Per Dr. Nelida Potts 01/08/2017, the patient was transferred to progressive care unit (PCU) due to acute respiratory issues and difficulty breathing. Intravenous (IV) fluids given for his acute kidney injury has caused fluid overload. Despite improvement in creatinine, the patient has now developed respiratory distress, was found to have decompensated congestive heart failure with ejection fraction of 25%. The patient remained confused throughout the entire admission. Dr. Patel was consulted by telephone by Dr. Colin Freeman. Dr. Patel suggested the patient did not need cardiac catheterization at this time, given his current infection and overall condition. He was diuresed with Lasix, renally tolerated, and add Entresto once the patient's volume is optimized and renal function is stabilized. Discussion for automatic implantable cardioverter-defibrillator (AICD) to be done in the office once the patient is euvolemic. On telemetry, the patient had episodes of first-degree AV block with PACs, initially thought to be atrial fibrillation. He does have nonsustained V-TACH with a 4 beat run. Potassium and magnesium were optimized. The patient's UTI may have contributed to impairment of his global cardiac performance. He was given boluses of fluid with good improvement. However, his Entresto and Coreg were replaced by captopril and spironolactone. Lasix was initially held. For his PACs and nonsustained V-TACH, his Eliquis was discontinued, as this was not atrial fibrillation. In light of the Coreg being discontinued, first-degree AV block did subside. The patient did sign a DO NOT RESUSCITATE, DO NOT INTUBATE; and, therefore, not a candidate for AICD. He was diuresed by Dr. Lopez until he was euvolemic. Creatinine had improved to 1.24, which is his baseline. He was continued on aspirin and Lipitor and captopril. The patient due to mental impairment and inability to pass a home safety evaluation was changed to ALC status on 01/24/2017. At the same time, his was then admitted due to a fall and syncopal episode. Both and Mrs. Parish were placed together in a shelter and transferred to [facility] on 01/29/2017. LABORATORIES ON DISCHARGE: White count 7.4, hemoglobin 11, hematocrit 33, platelet count 426. Sodium 140, potassium 4.8, chloride 109, bicarbonate 23, BUN 23, creatinine 1.09, glucose of 79, calcium of 8.7, magnesium of 2.6. MICROBIOLOGY: Urine culture 01/06/2017 with E. coli resistant to ampicillin, sulbactam, and cefazolin. Blood cultures 01/06/2017 no growth. 01/09/2017 blood cultures no growth. 01/09/2017 urine culture no growth. IMAGING STUDIES: Thoracic spine x-ray, pelvic, lumbar spine x-ray, no acute fractures or dislocations. CT abdomen and pelvis, status post cholecystectomy with mild pneumobilia, extensive vascular calcification, left colonic diverticulosis, moderate stool in the rectum and rectosigmoid, no acute abnormality, 1.8 cm cyst in the left kidney. Vascular ultrasound shows 50% to 79% carotid narrowing of right ICA. Left common carotid is unremarkable. Left ICA is 16% to 49% unchanged significantly. Chest x-ray 01/08/2017, prior sternotomy, interstitial markings, borderline heart size, somewhat prominent central pulmonary arteries. Chest x-ray on 01/18/2017, no active disease. TIME SPENT ON DISCHARGE: 40 minutes. ROCIO
== END 2017-01-29 13:35 | DRG 871 ==
LOC: M ED 10:51 → EDBD 10:51 → EDUNIT# 10:51 → M ED INP 15:34 → M MSPAV 17:38 → M ICU 01-08 04:30 → M PCU 01-13 19:57 → M MS5PR 01-23 14:00
PROVIDERS: ADMIT Internal Medicine; ATTEND General Practice
DX: A41.51 Sepsis due to Escherichia coli [E. coli] (principal); I50.41 Acute combined systolic (congestive) and diastolic (congestive) heart failure; N39.0 Urinary tract infection, site not specified; N17.9 Acute kidney failure, unspecified; I47.2 Ventricular tachycardia; J80 Acute respiratory distress syndrome; E78.5 Hyperlipidemia, unspecified; I25.10 Atherosclerotic heart disease of native coronary artery without angina pectoris; Z66 Do not resuscitate; D64.9 Anemia, unspecified; I44.0 Atrioventricular block, first degree; I27.2 Other secondary pulmonary hypertension; Z79.899 Other long term (current) drug therapy; I27.81 Cor pulmonale (chronic); Z79.82 Long term (current) use of aspirin; F32.9 Major depressive disorder, single episode, unspecified; J44.9 Chronic obstructive pulmonary disease, unspecified; N28.1 Cyst of kidney, acquired; K57.30 Diverticulosis of large intestine without perforation or abscess without bleeding; Z88.5 Allergy status to narcotic agent; Z88.0 Allergy status to penicillin; Z87.891 Personal history of nicotine dependence; Z68.23 Body mass index [BMI] 23.0-23.9, adult; M51.36 Other intervertebral disc degeneration, lumbar region; I25.2 Old myocardial infarction; I11.0 Hypertensive heart disease with heart failure; I08.0 Rheumatic disorders of both mitral and aortic valves; I48.0 Paroxysmal atrial fibrillation; I25.5 Ischemic cardiomyopathy

== ENCOUNTER → 2017-02-06 | Outpatient (REF) ==
[~2017-02-06] MED LIST changes: +ASPI1TAB PO; +CAPT125TA PO; +DIGO0.12 PO; +ELIQ5TAB PO; +LIPI20TA PO; +MILKSUS PO; +RISATAB3 PO; +SENN1TAB2 PO; +SPIR25TA2 PO
== END ==
PROVIDERS: ATTEND Internal Medicine
DX: I50.9 Heart failure, unspecified (principal)

== ENCOUNTER → 2017-02-07 | Outpatient (REF) ==
[2017-02-07 10:48] LABS: MEAN CORPUSCULAR HEMOGLOBIN 32.2 pg (27.0-33.0); MEAN CORPUSCULAR HGB CONC 34.3 g/dl (32.0-36.5); MEAN CORPUSCULAR VOLUME 93.8 fl (80.0-96.0); RED CELL DISTRIBUTION WIDTH 14.3 % (11.5-14.5); WHITE BLOOD COUNT 7.8 K/mm3 (4.0-10.0)
[2017-02-07 11:08] LABS: ANION GAP 6 MEQ/L (8-16); BLOOD UREA NITROGEN 29 MG/DL (7-18); CALCIUM LEVEL 8.7 MG/DL (8.8-10.2); CARBON DIOXIDE LEVEL 27 MEQ/L (21-32); CHLORIDE LEVEL 105 MEQ/L (98-107); CREATININE FOR GFR 1.22 MG/DL (0.70-1.30); GLOMERULAR FILTRATION RATE > 60.0 (>35); GLUCOSE, FASTING 114 MG/DL (83-110); POTASSIUM SERUM 5.1 MEQ/L (3.5-5.1); SODIUM LEVEL 138 MEQ/L (136-145)
== END ==
PROVIDERS: ATTEND Internal Medicine
DX: E78.5 Hyperlipidemia, unspecified (principal)

== ENCOUNTER → 2017-02-13 | Outpatient (REF) ==
[2017-02-13 09:13] LABS: MEAN CORPUSCULAR HEMOGLOBIN 30.2 pg (27.0-33.0); MEAN CORPUSCULAR HGB CONC 32.3 g/dl (32.0-36.5); MEAN CORPUSCULAR VOLUME 93.5 fl (80.0-96.0); RED CELL DISTRIBUTION WIDTH 14.6 % (11.5-14.5); WHITE BLOOD COUNT 6.8 10^3/uL (4.0-10.0)
[2017-02-13 09:43] LABS: ANION GAP 6 MEQ/L (8-16); BLOOD UREA NITROGEN 30 MG/DL (7-18); CALCIUM LEVEL 8.5 MG/DL (8.8-10.2); CARBON DIOXIDE LEVEL 30 MEQ/L (21-32); CHLORIDE LEVEL 105 MEQ/L (98-107); CREATININE FOR GFR 1.15 MG/DL (0.70-1.30); GLOMERULAR FILTRATION RATE > 60.0 (>35); GLUCOSE, FASTING 109 MG/DL (83-110); SODIUM LEVEL 141 MEQ/L (136-145)
== END ==
PROVIDERS: ATTEND Internal Medicine
DX: I10 Essential (primary) hypertension (principal)

== ENCOUNTER → 2017-03-06 | Outpatient (REF) ==
[2017-03-06 12:19] LABS: MEAN CORPUSCULAR HEMOGLOBIN 30.6 pg (27.0-33.0); MEAN CORPUSCULAR HGB CONC 32.8 g/dl (32.0-36.5); MEAN CORPUSCULAR VOLUME 93.3 fl (80.0-96.0); RED CELL DISTRIBUTION WIDTH 15.1 % (11.5-14.5); WHITE BLOOD COUNT 8.9 10^3/uL (4.0-10.0)
[2017-03-06 14:25] LABS: CALCIUM LEVEL 8.9 MG/DL (8.8-10.2); CREATININE FOR GFR 1.27 MG/DL (0.70-1.30); GLOMERULAR FILTRATION RATE 57.7 (>35); POTASSIUM SERUM 4.8 MEQ/L (3.5-5.1)
== END ==
PROVIDERS: ATTEND Internal Medicine
DX: I50.9 Heart failure, unspecified (principal)

== ENCOUNTER → 2017-07-23 | Outpatient (REF) | payer MEDICARE ==
[2017-07-23 08:54] LABS: BASO % 0.2 % (0.0-1.0); HEMATOCRIT 35.9 % (42.0-52.0); HEMOGLOBIN 12.2 g/dl (14.0-18.0); IMMATURE GRANULOCYTE % 0.9 % (0-3.0); LYMPH # 1.1 10^3/uL (1.5-4.5); LYMPH % 8.7 % (24.0-44.0); MEAN CORPUSCULAR HEMOGLOBIN 29.7 pg (27.0-33.0); MEAN CORPUSCULAR VOLUME 87.3 fl (80.0-96.0); MONO # 1.7 10^3/uL (0.0-0.8); NEUTROPHILS # 9.3 10^3/uL (1.8-7.7); NEUTROPHILS % 76.2 % (36.0-66.0); PLATELET COUNT, AUTOMATED 143 10^3/uL (150-450); RED BLOOD COUNT 4.11 10^6/uL (4.30-6.10); RED CELL DISTRIBUTION WIDTH 15.2 % (11.5-14.5); WHITE BLOOD COUNT 12.2 10^3/uL (4.0-10.0)
[2017-07-23 09:00] LABS: ANION GAP 9 MEQ/L (8-16); BLOOD UREA NITROGEN 36 MG/DL (7-18); CALCIUM LEVEL 8.1 MG/DL (8.8-10.2); CARBON DIOXIDE LEVEL 23 MEQ/L (21-32); CHLORIDE LEVEL 105 MEQ/L (98-107); CREATININE FOR GFR 1.56 MG/DL (0.70-1.30); GLOMERULAR FILTRATION RATE 45.5 (>35); GLUCOSE, FASTING 122 MG/DL (70-100); POTASSIUM SERUM 4.3 MEQ/L (3.5-5.1); SODIUM LEVEL 137 MEQ/L (136-145)
[2017-07-23 09:22] LABS: INFLUENZA A AMPLIFICATION NEGATIVE (NEGATIVE); INFLUENZA B AMPLIFICATION NEGATIVE (NEGATIVE)
== END ==
DX: R50.9 Fever, unspecified (principal)
CPT/HCPCS: 80048

== ENCOUNTER → 2017-07-24 | Outpatient (REF) | payer MEDICARE ==
[2017-07-24 10:57] LABS: ANION GAP 10 MEQ/L (8-16); BLOOD UREA NITROGEN 35 MG/DL (7-18); CALCIUM LEVEL 8.2 MG/DL (8.8-10.2); CARBON DIOXIDE LEVEL 25 MEQ/L (21-32); CHLORIDE LEVEL 106 MEQ/L (98-107); CREATININE FOR GFR 1.59 MG/DL (0.70-1.30); GLOMERULAR FILTRATION RATE 44.5 (>35); GLUCOSE, FASTING 119 MG/DL (70-100); POTASSIUM SERUM 4.1 MEQ/L (3.5-5.1); SODIUM LEVEL 141 MEQ/L (136-145)
== END ==
DX: R50.9 Fever, unspecified (principal)
CPT/HCPCS: 80048

== ENCOUNTER → 2017-07-25 | Outpatient (REF) | payer MEDICARE ==
[2017-07-25 08:07] LABS: HEMATOCRIT 36.2 % (42.0-52.0); HEMOGLOBIN 11.7 g/dl (14.0-18.0); MEAN CORPUSCULAR HEMOGLOBIN 28.5 pg (27.0-33.0); MEAN CORPUSCULAR HGB CONC 32.3 g/dl (32.0-36.5); MEAN CORPUSCULAR VOLUME 88.3 fl (80.0-96.0); PLATELET COUNT, AUTOMATED 169 10^3/uL (150-450); RED CELL DISTRIBUTION WIDTH 15.4 % (11.5-14.5); WHITE BLOOD COUNT 9.2 10^3/uL (4.0-10.0)
[2017-07-25 08:27] LABS: ANION GAP 11 MEQ/L (8-16); BLOOD UREA NITROGEN 33 MG/DL (7-18); CARBON DIOXIDE LEVEL 21 MEQ/L (21-32); CHLORIDE LEVEL 110 MEQ/L (98-107); CREATININE FOR GFR 1.54 MG/DL (0.70-1.30); GLOMERULAR FILTRATION RATE 46.2 (>35); GLUCOSE, FASTING 152 MG/DL (70-100); POTASSIUM SERUM 4.4 MEQ/L (3.5-5.1); SODIUM LEVEL 142 MEQ/L (136-145)
== END ==
DX: R50.9 Fever, unspecified (principal)
CPT/HCPCS: 80048

== ENCOUNTER → 2017-07-30 | Outpatient (REF) | payer MEDICARE ==
[2017-07-30 12:04] LABS: HEMATOCRIT 36.7 % (42.0-52.0); HEMOGLOBIN 12.1 g/dl (14.0-18.0); MEAN CORPUSCULAR HEMOGLOBIN 28.9 pg (27.0-33.0); MEAN CORPUSCULAR VOLUME 87.8 fl (80.0-96.0); PLATELET COUNT, AUTOMATED 258 10^3/uL (150-450); RED BLOOD COUNT 4.18 10^6/uL (4.30-6.10); RED CELL DISTRIBUTION WIDTH 16.2 % (11.5-14.5); WHITE BLOOD COUNT 21.3 10^3/uL (4.0-10.0)
[2017-07-30 12:12] LABS: ADD MANUAL DIFFER YES; DIFF SLIDE NUMBER 197; POS COUNT POS FLAG; POSITIVE MORPH POS FLAG
[2017-07-30 13:00] LABS: ALBUMIN 3.2 GM/DL (3.2-5.2); ALBUMIN/GLOBULIN RATIO 0.94 (1.00-1.93); ALKALINE PHOSPHATASE 347 U/L (45-117); ALT/SGPT 1421 U/L (12-78); ANION GAP 15 MEQ/L (8-16); AST/SGOT 1182 U/L (7-37); BILIRUBIN,DIRECT 1.2 MG/DL (0.0-0.2); BILIRUBIN,TOTAL 2.1 MG/DL (0.2-1.0); BLOOD UREA NITROGEN 93 MG/DL (7-18); C REACTIVE PROTEIN QUANTITATIV 7.82 MG/DL (0.00-0.30); CALCIUM LEVEL 8.2 MG/DL (8.8-10.2); CARBON DIOXIDE LEVEL 16 MEQ/L (21-32); CHLORIDE LEVEL 106 MEQ/L (98-107); CREATININE FOR GFR 2.43 MG/DL (0.70-1.30); GLOMERULAR FILTRATION RATE 27.3 (>35); GLUCOSE, FASTING 187 MG/DL (70-100); NT-PRO BNP 62597 PG/ML (<450); PHOSPHORUS LEVEL 6.5 MG/DL (2.5-4.9); SODIUM LEVEL 137 MEQ/L (136-145); TOTAL PROTEIN 6.6 GM/DL (6.4-8.2)
[2017-07-30 13:07] LABS: POTASSIUM SERUM 6.3 MEQ/L (3.5-5.1)
[2017-07-30 13:08] LABS: ANISOCYTOSIS 2+; BANDS 2 % (< 11); LYMPHOCYTES 4 % (16-52); MONOCYTES 7 % (0-8); MYELOCYTES 4 % (0-0); NEUTROPHILS 83 % (35-75); PLATELET ESTIMATE NORMAL (NORMAL); POIKILOCYTOSIS 1+
[2017-07-30 13:11] LABS: BURR CELLS 1+
[2017-07-30 17:49] LABS: AMORPHOUS SEDIMENT SMALL (NEGATIVE); APPEARANCE, URINE HAZY (CLEAR); BACTERIA, URINE AUTO NEGATIVE (NEGATIVE); BILIRUBIN, URINE AUTO NEGATIVE (NEGATIVE); BLOOD, URINE BLOOD 1+ (NEGATIVE); COLOR, URINE YELLOW (YELLOW); GLUCOSE, URINE (UA) AUTO NEGATIVE (NEGATIVE); KETONE, URINE AUTO NEGATIVE (NEGATIVE); LEUKOCYTE ESTERASE, URINE AUTO NEGATIVE (NEGATIVE); MUCUS, URINE SMALL (NEGATIVE); NITRITE, URINE AUTO NEGATIVE (NEGATIVE); PROTEIN, URINE AUTO 2+ mg/dL (NEGATIVE); RBC, URINE AUTO 10 /HPF (0-3); SPECIFIC GRAVITY URINE AUTO 1.019 (1.002-1.035); SQUAMOUS EPITHELIAL CELL UR AU 0 /HPF (0-6); UROBILINOGEN, URINE AUTO 0.2 mg/dL (0.0-2.0); WBC, URINE AUTO 2 /HPF (0-3)
[2017-07-31 09:28] LABS: CPK CREATINE PHOSPHOKINASE 205 U/L (39-308); MB/CK RELATIVE INDEX 3.41 (< OR =4); TROPONIN I 0.14 NG/ML (< 0.10)
== END ==
DX: R06.02 Shortness of breath (principal); I50.9 Heart failure, unspecified; R11.10 Vomiting, unspecified; Z79.899 Other long term (current) drug therapy
CPT/HCPCS: 82550